=== PATIENT | female | born 1955 | race Caucasian/White ===

== ENCOUNTER 2017-01-24 08:40 | Inpatient (IN) | payer BC ==
[2017-01-24] MEDS ORDERED: NORMAL SALINE 1000 ML 1,000 ML IV ONE ×2 (09:06→10:08)
[2017-01-24] MEDS: NORMAL SALINE 1000 ML 1,000 ML IV PRN ×4 (09:08→21:23)
[2017-01-24 09:16] LABS: VENOUS BLOOD BASE EXCESS -8.8 mmol/L; VENOUS BLOOD HCO3 18.4 mmol/L (20-32); VENOUS BLOOD PCO2 44.5 mmHg (35-63); VENOUS BLOOD PH 7.23 (7.30-7.42)
[2017-01-24 09:18] LABS: HEMATOCRIT 32.9 % (36.0-47.0); HEMOGLOBIN 10.9 g/dL (12.0-15.5); HGB HCT DIFFERENCE -0.2; MEAN CORPUSCULAR HEMOGLOBIN 30.9 pg (27.0-33.4); MEAN CORPUSCULAR HGB CONC 33.1 g/dL (32.0-36.0); MEAN CORPUSCULAR VOLUME 94 fl (80-97); RED BLOOD COUNT 3.52 10^6/uL (3.72-5.28); RED CELL DISTRIBUTION WIDTH 13.8 % (11.5-14.0)
[2017-01-24] MEDS ORDERED: CEFTRIAXONE 1 GM/D5W RTU 50 ML IV ONE (09:19)
[2017-01-24] MEDS ORDERED: VANCOMYCIN HCL INJ 1000 MG VIAL IV ONE (09:19)
[2017-01-24 09:27] LABS: PROTHROMBIN TIME 13.1 SEC (11.4-15.4)
[2017-01-24 09:28] LABS: PARTIAL THROMBOPLASTIN TIME 31.1 SEC (23.5-35.8)
[2017-01-24 09:36] LABS: ALANINE AMINOTRANSFERASE 32 U/L (9-52); ALBUMIN 2.9 g/dL (3.5-5.0); ALKALINE PHOSPHATASE 141 U/L (38-126); ANION GAP 14 (5-19); ASPARTATE AMINO TRANSFERASE 23 U/L (14-36); BILIRUBIN,DIRECT 1.3 mg/dL (0.0-0.4); BILIRUBIN,TOTAL 1.3 mg/dL (0.2-1.3); BLOOD UREA NITROGEN 64 mg/dL (7-20); CALCIUM 8.7 mg/dL (8.4-10.2); CARBON DIOXIDE 16 mmol/L (22-30); CHLORIDE 106 mmol/L (98-107); CREATININE RESULT 4.09 mg/dL (0.52-1.25); GLUCOSE 118 mg/dL (75-110); POTASSIUM 3.5 mmol/L (3.6-5.0); SODIUM 135.9 mmol/L (137-145); TOTAL PROTEIN 5.7 g/dL (6.3-8.2)
[2017-01-24] MEDS ORDERED: NOREPINEPHRINE BITARTRATE INJ/PF 4 MG/4 ML SDV IV ONE (09:37)
[2017-01-24 09:52] LABS: BAND NEUTROPHILS % (MANUAL) 1 % (3-5); BASOPHILS % (MANUAL) 0 % (0-2); EOSINOPHILS % (MANUAL) 2 % (0-6); LYMPHOCYTES % (MANUAL) 0 % (13-45); TOTAL CELLS COUNTED 100
[2017-01-24 09:54] LABS: PLATELET CLUMPS PRESENT; RBC MORPHOLOGY COMMENT NORMO-CYTIC/CHROMIC; TOXIC VACUOLATION PRESENT
[2017-01-24] MEDS ORDERED: HYDROCORTISONE SOD SUCCINATE INJ/PF 100 MG/2 ML SDV IV ONE (10:01)
--- NOTE | 2017-01-24 10:02 | RADIOLOGY REPORT (SQ) ---
EXAM DESCRIPTION: CT HEAD WITHOUT COMPLETED DATE/TIME: 01/24/2017 9:47 am REASON FOR STUDY: ams COMPARISON: None. TECHNIQUE: Axial images acquired through the brain without intravenous contrast. Images reviewed wi th bone, brain and subdural windows. Images stored on PACS. All CT scanners at this facility use dose modulation, iterative reconstruction, and/or weight based d osing when appropriate to reduce radiation dose to as low as reasonably achievable (ALARA). [facility]: Dose Right [facility]: CareDose [facility]: Dose Right [facility]: Teradose 4D [facility]: [employer] RADIATION DOSE: Up-to-date CT equipment and radiation dose reduction techniques were employed. CTDIv ol: 64.6 mGy. DLP: 1163 mGy-cm. mGy. LIMITATIONS: None. FINDINGS: VENTRICLES: Normal size and contour. CEREBRUM: No masses. No hemorrhage. No midline shift. Normal haines/white matter differentiation. N o evidence for acute infarction. CEREBELLUM: No masses. No hemorrhage. No alteration of density. No evidence for acute infarction. EXTRAAXIAL SPACES: No fluid collections. No masses. ORBITS AND GLOBE: No intra- or extraconal masses. Normal contour of globe without masses. CALVARIUM: No fracture. PARANASAL SINUSES: No fluid or mucosal thickening. SOFT TISSUES: No mass or hematoma. OTHER: No other significant finding. IMPRESSION: NORMAL BRAIN CT WITHOUT CONTRAST. TECHNICAL DOCUMENTATION: JOB ID: [id number] Quality ID # [id number]: Final reports with documentation of one or more dose reduction techniques (e.g., Au tomated exposure control, adjustment of the mA and/or kV according to patient size, use of iterative reconstruction technique) 2010 [employer]- All Rights Reserved
[2017-01-24 10:05] LABS: THYROID STIMULATING HORMONE 2.31 uIU/mL (0.47-4.68)
--- NOTE | 2017-01-24 10:23 | RADIOLOGY REPORT (SQ) ---
EXAM DESCRIPTION: FOREARM LEFT COMPLETED DATE/TIME: 01/24/2017 10:12 am REASON FOR STUDY: OPEN WOUND, CHECK FOR GAS COMPARISON: None. NUMBER OF VIEWS: Two views. TECHNIQUE: Two radiographic images acquired of the left forearm, including elbow and wrist in at juve st one projection. LIMITATIONS: None. FINDINGS: MINERALIZATION: Normal. BONES: No acute fracture. No worrisome bone lesions. SOFT TISSUES: The wound is seen on the forearm. There is no gas in subcutaneous tissues. OTHER: No other significant finding. IMPRESSION: Wound with no osseous abnormality and with no evidence of gas in the subcutaneous tissue s. TECHNICAL DOCUMENTATION: JOB ID: [id number] [employer]- All Rights Reserved
[2017-01-24] MEDS ORDERED: NORMAL SALINE 1000 ML 1,000 ML IV PRN (11:06)
[2017-01-24] MEDS ORDERED: POTASSI CL 20 MEQ/50 ML RIDER 50 ML IV ONE (11:07)
[2017-01-24 11:17] LABS: AMORPHOUS SEDIMENT,URINE TRACE /HPF; APPEARANCE,URINE SLIGHTLY-CLOUDY; BILIRUBIN,URINE NEGATIVE (NEGATIVE); GLUCOSE, URINE NEGATIVE (NEGATIVE); KETONES,URINE NEGATIVE (NEGATIVE); LEUKOCYTE ESTERASE,URINE NEGATIVE (NEGATIVE); NITRITE,URINE NEGATIVE (NEGATIVE); PROTEIN,URINE NEGATIVE (NEGATIVE); UROBILINOGEN,URINE NEGATIVE mg/dL (<2.0)
[2017-01-24] MEDS ORDERED: PIPERACILLIN/TAZOBACTAM 3.375 GM VIAL IV ONE (11:20)
--- NOTE | 2017-01-24 11:27 | ER Document Report ---
ED General - General Chief Complaint: Altered Mental Status Stated Complaint: FALL\ALTERED MENTAL STATUS Time Seen by Provider: 01/24/17 08:59 TRAVEL OUTSIDE OF THE [place] IN LAST 30 DAYS: No - HPI Patient complains to provider of: Altered mental status Notes: Patient is coming in for altered mental status. According to the daughter at bedside patient since Monday is having altered mental status acting unusual states that the patient has been talking of her head no fevers no chills no nausea no vomiting patient had a recent I&D of a abscess on her left forearm since that time the forearm has become red and swollen. Otherwise patient has a very benign past medical history. Upon evaluation patient is severely hypotensive and pale looking patient is altered with waxing and waning alertness patient will be a no times forward and ANO 1. Patient GCS of 15 will have a GCS of around 11 of 10. Patient is maintaining her airway. Patient went altered does look to have a leftward gaze. - Related Data Allergies/Adverse Reactions: No Known Allergies Allergy (Unverified 01/24/17 08:52) Home Medications: Current Home Medications Amlodipine Besylate [Norvasc 10 mg Tablet] 10 mg PO DAILY 01/24/17 [History] Clonidine HCl [Catapres 0.3 mg Tablet] 0.3 mg PO DAILY 01/24/17 [History] Duloxetine HCl [Cymbalta] 60 mg PO QHS 01/24/17 [History] Gabapentin [Neurontin 300 mg Capsule] 300 mg PO Q8 01/24/17 [History] Lovastatin [Altoprev] 20 mg PO [id number] 01/24/17 [History] Meloxicam [Mobic 7.5 Mg Tablet] 7.5 mg PO Q12 01/24/17 [History] Oxycodone HCl [Oxycodone HCl 10 MG Tablet] 10 mg PO Q12HP PRN 01/24/17 [History] Oxycodone HCl/Acetaminophen [Percocet 10-325 Mg Tablet] 1 tab PO Q6HP PRN [History] Tizanidine HCl [Zanaflex 4 Mg Tablet] 4 mg PO Q8HP PRN 01/24/17 [History] Topiramate [Topamax] 50 mg PO DAILY 01/24/17 [History] Topiramate [Topamax] 100 mg PO QHS 01/24/17 [History] Trazodone HCl [Desyrel 50 mg Tablet] 50 mg PO HSP PRN 01/24/17 [History] Past Medical History - Social History Smoking Status: Never Smoker Chew tobacco use (# tins/day): No Frequency of alcohol use: Occasional Drug Abuse: None Family History: Reviewed & Not Pertinent Patient has suicidal ideation: No Patient has homicidal ideation: No - Past Medical History Cardiac Medical History: Reports: Hx Hypertension - on meds Denies: Hx Coronary Artery Disease, Hx Heart Attack Pulmonary Medical History: Denies: Hx Asthma, Hx Bronchitis, Hx COPD, Hx Pneumonia Neurological Medical History: Denies: Hx Cerebrovascular Accident, Hx Seizures Renal/ Medical History: Denies: Hx Peritoneal Dialysis Musculoskeltal Medical History: Denies Hx Arthritis - Immunizations Hx Diphtheria, Pertussis, Tetanus Vaccination: No Review of Systems - Review of Systems Notes: Difficult to obtain due to severe vital sign abnormalities -: Yes ROS unobtainable due to patient's medical condition Physical Exam - Vital signs Vitals: Resp Pulse Ox 13 95 01/24/17 08:57 01/24/17 08:57 Interpretation: Hypotensive, Hypoxic - General General appearance: Lethargic In distress: Severe - HEENT Head: Normocephalic, Atraumatic Eyes: Normal Conjunctiva: Normal Cornea: Normal Extraocular movements intact: Yes Pupils: PERRL Anterior chamber: Normal Fundascopic: Normal Neck: Normal - Respiratory Respiratory status: No respiratory distress Chest status: Nontender Breath sounds: Normal Chest palpation: Normal - Cardiovascular Rhythm: Regular Heart sounds: Normal auscultation Murmur: No - Abdominal Inspection: Normal Distension: No distension Bowel sounds: Normal Tenderness: Nontender Organomegaly: No organomegaly - Back Back: Normal, Nontender - Extremities General upper extremity: Nontender, Normal color, Normal ROM, Normal temperature. No: Normal inspection - Patient with 2 open wounds on the left arm from recent I&D ventilation tissue arm is erythematous and swollen the arm is tight with the edema. Cap refill is intact distally. Unknown if this is very tender knots patient does have altered mental status. General lower extremity: Normal inspection, Nontender, Normal color, Normal ROM , Normal temperature, Normal weight bearing. No: Preston's sign - Neurological Neuro grossly intact: Yes Cognition: Normal Orientation: AAOx4 - Waxing and waning mental status. Josh Coma Scale Eye Opening: Spontaneous [place] Coma Scale Verbal: Oriented [place] Coma Scale Motor: Obeys Commands Josh Coma Scale Total: 15 Speech: Normal Motor strength normal: LUE, RUE, LLE, RLE Sensory: Normal - Psychological Associated symptoms: Normal affect, Normal mood - Skin Skin Temperature: Cold Skin Moisture: Dry Skin Color: Dusky Course - Re-evaluation Re-evalutation: 01/24/17 15:02 Patient presents with significant hypotension and altered mental status. Upon initial evaluation patient had waxing and waning of her alertness. Patient did not complain of any pain. 2 IVs were established and 2 L of fluid were given to the patient. Concern for intracranial pathology is that the patient when she became altered with have a leftward gaze. Patient is hypotensive and borderline bradycardic concern for another intracranial pathology therefore his CT of the head was performed emergently. Patient then returned to room trauma room #2 upon [address] the patient tremor #2 patient actually had a decrease in her systolic blood pressure and her map despite 2 L of fluid therefore central line was placed as noted. Patient was given more fluids and initiation of Levophed. Patient examination does show signs of cellulitis however bedside ultrasound to evaluate the patient's abdominal aorta was made difficult and large gallbladder was seen on bedside ultrasound therefore after central line levo fed an extra 2 L of fluid were instilled in patient with improvement of her blood pressure decision was made to perform a CTA of the chest abdomen pelvis to look for other acute pathology. This returned only showing distended gallbladder lab work shows bandemia leukocytosis with acute renal failure at that time CT scans risk of worsening renal failure were negligible toward the patient's possible outcome of having a dissecting aneurysm. Patient is arm does have similar process concern for underlying infection therefore after discussing with PCP Dr. Pfeiffer I did contact surgery he did evaluate the patient. Broaden patient's coverage from initial antibiotics of Rocephin and vancomycin to Zosyn. Patient will be placed in ICU. - Vital Signs Vital signs: Temp Pulse Resp BP Pulse Ox 95.7 F L 115 H 18 73/31 L 99 01/24/17 12:45 01/24/17 12:45 01/24/17 12:45 01/24/17 12:45 01/24/17 12:45 - Laboratory Result Diagrams: 01/24/17 09:02 08/08/17 09:02 Laboratory results interpreted by me: 01/24/17 01/24/17 01/24/17 09:02 09:02 09:02 WBC 17.0 H RBC 3.52 L Hgb 10.9 L Hct 32.9 L Seg Neuts % (Manual) 92 H Band Neutrophils % 1 L Lymphocytes % (Manual) 0 L Abs Neuts (Manual) 15.8 H Abs Lymphs (Manual) 0.0 L VBG pH VBG HCO3 Sodium 135.9 L Potassium 3.5 L Carbon Dioxide 16 L BUN 64 H Creatinine 4.09 H Est GFR ( Amer) 13 L Est GFR (Non-Af Amer) 11 L Glucose 118 H Lactic Acid 2.8 H Direct Bilirubin 1.3 H Alkaline Phosphatase 141 H Total Protein 5.7 L Albumin 2.9 L Urine Blood 01/24/17 01/24/17 09:02 10:53 WBC RBC Hgb Hct Seg Neuts % (Manual) Band Neutrophils % Lymphocytes % (Manual) Abs Neuts (Manual) Abs Lymphs (Manual) VBG pH 7.23 L VBG HCO3 18.4 L Sodium Potassium Carbon Dioxide BUN Creatinine Est GFR ( Amer) Est GFR (Non-Af Amer) Glucose Lactic Acid Direct Bilirubin Alkaline Phosphatase Total Protein Albumin Urine Blood LARGE H Procedures - Central Line Right Internal jugular Consent obtained: Yes Central line lumen type: Triple Anesthetic type: 1% Lidocaine Ultrasound guided: Yes CM at insertion site: 20 Line secured with sutures: Yes Central line post-insertion: Blood return from lumens, Sutured, Sterile dressing applied, Other - Confirmed on CT scan Number of attempts: 1 Complications: Yes Critical Care Note - Critical Care Note Total time excluding time spent on procedures (mins): 80 Comments: Multiple evaluation for severe sepsis with endorgan failure cellulitic process of the patient's underlying etiology. Discharge - Discharge Clinical Impression: Sepsis, Cellulitis of left arm, Enlarged gallbladder, Metabolic acidosis Admitting Provider: [facility] Unit Admitted: ICU
--- NOTE | 2017-01-24 11:28 | RADIOLOGY REPORT (SQ) ---
EXAM DESCRIPTION: CTA CHEST COMPLETED DATE/TIME: 01/24/2017 10:49 am REASON FOR STUDY: abd pain sepsis refactory hypotension COMPARISON: CT abdomen pelvis same date TECHNIQUE: CT scan of the chest performed using helical scanning technique with dynamic intravenous contrast injection. Images reviewed with lung, soft tissue and bone windows. Reconstructed coronal and sagittal MPR images reviewed. Additional 3 dimensional post-processing performed to develop Maximal Intensity Projection images (MA P). All images stored on PACS. All CT scanners at this facility use dose modulation, iterative reconstruction, and/or weight based d osing when appropriate to reduce radiation dose to as low as reasonably achievable (ALARA). [facility]: Dose Right [facility]: CareDose [facility]: Dose Right [facility]: Teradose 4D [facility]: [employer] CONTRAST TYPE AND DOSE: contrast/concentration: Isovue 370.00 mg/ml; Total Contrast Delivered: 50.0 ml; Total Saline Delivered: 70.1 ml RENAL FUNCTION: Deferred at the time of scanning, due to the urgent need for imaging and severity of the patient's condition, scanning was performed without renal function studies RADIATION DOSE: Up-to-date CT equipment and radiation dose reduction techniques were employed. CTDIv ol: 2.8 - 11.2 mGy. DLP: 912 mGy-cm. . LIMITATIONS: None. FINDINGS: LUNGS AND PLEURA: No pulmonary edema. No pulmonary nodules. No dense consolidation worri some for pneumonia. Minimal dependent atelectasis in the posterior right and left lower lobes. No p leural effusion or pneumothorax. Airways are patent. AORTA AND GREAT VESSELS: Contrast bolus was timed for evaluation of the thoracic aorta. No thoracic aortic aneurysm or dissection. Maximum intensity re- projected images of the pulmonary arteries were generated. No gross emboli to the main, or right or left proximal main pulmonary arteries. HEART: No pericardial effusion. PULMONARY ARTERIES: No emboli visualized in the main pulmonary arteries or the segmental branches. HILAR AND MEDIASTINAL STRUCTURES: No identified masses or abnormal nodes. HARDWARE: A right jugular central venous line is present with the tip crossing midline, and in the le ft brachiocephalic vein. UPPER ABDOMEN: Distended gallbladder THYROID AND OTHER SOFT TISSUES: No masses. No adenopathy. BONES: No acute or significant finding. 3D MIPS: Confirm above findings. OTHER: Findings discussed with Dr. Mccallum, 1030 hours 01/24/2017. IMPRESSION: No thoracic aortic dissection. No gross saddle pulmonary embolus. Minimal bibasilar at electasis. TECHNICAL DOCUMENTATION: JOB ID: [id number] Quality ID # [id number]: Final reports with documentation of one or more dose reduction techniques (e.g., Au tomated exposure control, adjustment of the mA and/or kV according to patient size, use of iterative reconstruction technique) 2010 [employer]- All Rights Reserved
--- NOTE | 2017-01-24 12:00 | RADIOLOGY REPORT (SQ) ---
EXAM DESCRIPTION: CTA ABDOMEN/PELVIS W WO COMPLETED DATE/TIME: 01/24/2017 10:49 am REASON FOR STUDY: abd pain sepsis refactory hypotension COMPARISON: CT angio chest same date TECHNIQUE: CT scan of the abdominal aorta extending to the bilateral common femoral bifurcations per formed with intravenous contrast using helical scanning technique with dynamic intravenous contrast i njection. Images reviewed with lung, soft tissue, and bone windows. Reconstructed coronal and sagitta l MPR images reviewed. All images stored on PACS. Advanced 3D imaging as volume rendering, MIPS, SSD performed? yes All CT scanners at this facility use dose modulation, iterative reconstruction, and/or weight based d osing when appropriate to reduce radiation dose to as low as reasonably achievable (ALARA). [facility]: Dose Right [facility]: CareDose [facility]: Dose Right [facility]: Teradose 4D [facility]: [employer] CONTRAST TYPE AND DOSE: 50.2 mL of Isovue 370- low osmolar. RENAL FUNCTION: Due to the upper just nature of the study and severity of the patient's clinical con dition, emergency room attending physician deferred renal function studies prior to this exam with IV contrast LIMITATIONS: None. FINDINGS: AORTA AND VESSELS: No aneurysm. No dissection. Renal arteries, SMA, celiac without stenosi s. LUNG BASES: Minimal dependent atelectasis both lung bases. LIVER: Normal size. No masses or dilated ducts. SPLEEN: Normal size. No focal lesions. PANCREAS: No masses. No significant calcifications. No adjacent inflammation or peripancreatic fluid collections. Pancreatic duct not dilated. GALLBLADDER: Distended, 10 cm in length. No radiopaque gallstones by CT. No definite gallbladder wa ll thickening or pericholecystic fluid. ADRENAL GLANDS: No significant masses or asymmetry. RIGHT KIDNEY AND URETER: No mass, calculi or urinary tract obstruction. LEFT KIDNEY AND URETER: No mass, calculi or urinary tract obstruction. RETROPERITONEUM: No retroperitoneal adenopathy, hemorrhage or masses. BOWEL AND PERITONEAL CAVITY: No masses or inflammatory changes. No free fluid or peritoneal masses. Moderate stool in the colon. No free intraperitoneal air. Few sigmoid colon diverticuli without CT signs of acute diverticulitis. APPENDIX: Normal. ABDOMINAL WALL: No masses. No hernias. PELVIS: Normal size female pelvic organs. No free pelvic cul-de-sac fluid. No pelvic masses or naina nopathy. BONY STRUCTURES: No significant or acute findings. 3-D IMAGING: Confirms the above findings. OTHER: No other significant finding. IMPRESSION: No CT evidence of abdominal aortic aneurysm or retroperitoneal hemorrhage. Moderate stool in the colon. Distended gallbladder These results were discussed with Dr. Mccallum, 1030 hours, 02/24/2017. TECHNICAL DOCUMENTATION: JOB ID: [id number] Quality ID # [id number]: Final reports with documentation of one or more dose reduction techniques (e.g., Au tomated exposure control, adjustment of the mA and/or kV according to patient size, use of iterative reconstruction technique) 2010 [employer]- All Rights Reserved
--- NOTE | 2017-01-24 12:10 | EKG REPORT ---
SEVERITY:- BORDERLINE ECG - SINUS RHYTHM BORDERLINE T ABNORMALITIES, ANT-LAT LEADS : Confirmed by: Dustin Garnett 24-Jan-2017 12:10:12
[2017-01-24] MEDS ORDERED: VANCOMYCIN HCL 0 MG in DEXTROSE 5%-WATER 250 ML IV NR (12:15)
[2017-01-24] MEDS ORDERED: PIPERACILLIN SODIUM/TAZOBACTAM 3.375 GM in NORMAL SALINE 100 ML IV SCH (12:15)
[2017-01-24] MEDS ORDERED: DEXTROSE 5%-WATER 250 ML with NOREPINEPHRINE BITARTRATE 4 MG IV PRN ×2 (12:53)
[2017-01-24 13:38] LABS: PARTIAL THROMBOPLASTIN TIME 33.6 SEC (23.5-35.8)
[2017-01-24 13:51] LABS: MAGNESIUM 1.6 mg/dL (1.6-2.3); PHOSPHORUS 3.9 mg/dL (2.5-4.5)
[2017-01-24 13:53] LABS: AMYLASE < 30 U/L (30-110); LIPASE < 10.0 U/L (23-300)
[2017-01-24 14:54] LABS: TROPONIN I < 0.012 ng/mL
[2017-01-24 15:08] LABS: THYROID STIMULATING HORMONE 0.7 uIU/mL (0.47-4.68)
[2017-01-24] MEDS: HEPARIN SOD (PORCINE) 5,000 UNIT/ML 1 ML SYRINGE SUBCUT SCH ×2 (16:37→21:22)
[2017-01-24] MEDS: PIPERACILLIN SODIUM/TAZOBACTAM 2.25 GM in NORMAL SALINE 50 ML IV SCH ×2 (16:39→21:23)
[2017-01-24] MEDS: LANSOPRAZOLE 30 MG TAB.RAP.DR PO SCH (16:39)
--- NOTE | 2017-01-24 17:15 | RADIOLOGY REPORT (SQ) ---
EXAM DESCRIPTION: CHEST SINGLE VIEW COMPLETED DATE/TIME: 01/24/2017 4:50 pm REASON FOR STUDY: check central line placement COMPARISON: CT angio chest 01/24/2017 EXAM PARAMETERS: NUMBER OF VIEWS: One view. TECHNIQUE: Single frontal radiographic view of the chest acquired. RADIATION DOSE: NA LIMITATIONS: None. FINDINGS: A right jugular central venous catheter is present with the tip crossing midline, in the l eft brachiocephalic vein. LUNGS AND PLEURA: No opacities, masses or pneumothorax. No pleural effusion. MEDIASTINUM AND HILAR STRUCTURES: No masses. Contour normal. HEART AND VASCULAR STRUCTURES: Mild cardiomegaly BONES: No acute findings. HARDWARE: As above OTHER: No other significant finding. IMPRESSION: No acute infiltrates. Right jugular central line tip in the left brachiocephalic vein TECHNICAL DOCUMENTATION: JOB ID: [id number]
--- NOTE | 2017-01-24 17:52 | OPERATIVE REPORT E ---
Operative Report NAME: MANNIE DE OLIVEIRA : 1955 AGE: 61Y DATE OF SURGERY: 01/24/2017 ROOM: 607 PREOPERATIVE DIAGNOSIS: Malpositioned central line. POSTOPERATIVE DIAGNOSIS: Malpositioned central line. OPERATION: Repositioning of central line internal jugular vein on the right side. SURGEON: EMILY SANCHEZ M.D. ANESTHESIA: INDICATIONS: Patient had a central line placed in the ER and a chest x-ray was taken in the ICU which showed the catheter going towards the distal subclavian vein. PROCEDURE: The dressing was removed and the site prepped and draped in the usual sterile fashion. The nurse was not able to aspirate any blood from the catheter. Because of this, the catheter is being pulled back. After removal of the dressing and prepping the area, the sutures on the catheter were then removed. Catheter was subsequently pulled back about 5 cm. It was then grasped in a sterile fashion using another Biopatch. A chest x-ray will be obtained for positioning. DICTATING PHYSICIAN: EMILY SANCHEZ M.D. [id number] PHY#: [id number] ID: [id number] JOB#: [id number] ACCT: [id number] cc:EMILY SANCHEZ M.D. >
--- NOTE | 2017-01-24 17:54 | RADIOLOGY REPORT (SQ) ---
EXAM DESCRIPTION: CHEST SINGLE VIEW COMPLETED DATE/TIME: 01/24/2017 5:46 pm REASON FOR STUDY: central line placement COMPARISON: Earlier the same day. EXAM PARAMETERS: NUMBER OF VIEWS: One view. TECHNIQUE: Single frontal radiographic view of the chest acquired. RADIATION DOSE: NA LIMITATIONS: None. FINDINGS: LUNGS AND PLEURA: No pneumothorax or consolidation. Central line has been repositioned. Catheter tip now overlies the midline. It lies just left of the upper SVC. MEDIASTINUM AND HILAR STRUCTURES: No masses. Contour normal. HEART AND VASCULAR STRUCTURES: Heart normal in size. Normal vasculature. BONES: No acute findings. HARDWARE: None in the chest. OTHER: No other significant finding. IMPRESSION: Central line has been repositioned as described. TECHNICAL DOCUMENTATION: JOB ID: [id number]
[2017-01-24 19:44] LABS: TROPONIN I < 0.012 ng/mL
[2017-01-24] MEDS ORDERED: TRAZODONE HCL 50 MG TABLET PO PRN (20:03)
[2017-01-24] MEDS ORDERED: (PENDING PHARMACY ID) (Oxycodone Hcl/Acetaminophen [Percocet 10-325 Mg Tablet] 1 TAB) PO PRN (20:03)
[2017-01-24] MEDS ORDERED: TIZANIDINE HCL 4 MG TABLET PO PRN (20:03)
--- NOTE | 2017-01-24 20:44 | PDOC H&P ---
History of Present Illness Admission Date/PCP: 01/24/17 12:09 DASIA KESSLER MD History of Present Illness: Patient was brought to the emergency room for evaluation of altered mental status, the emergency room when she arrived she was in septic shock, the blood pressure was extremely low there was associated leukocytosis and erythema of the left upper extremity. Patient fell last week sustaining injury to the left upper arm this was treated outpatient with antibiotic and topical creams she subsequently developed hematoma that was aspirated and subsequently she had incision and drainage and it seems that it is secondarily infected and that is the potential source of sepsis it seems. In the emergency room she was extensively evaluated with CT scans of the chest abdomen and pelvis. Patient was resuscitated in the emergency room with IV fluid empirically covered with antibiotic including vancomycin, Zosyn and Rocephin. I saw her in the emergency room she she does respond she was alert though she was confused earlier, there was associated acute kidney injury with lactic acidosis. Past Medical History Cardiac Medical History: Reports: Hypertension - on meds Psychiatric Medical History: Reports: Depression Social History Smoking Status: Former Smoker Frequency of Alcohol Use: Occasional Hx Prescription Drug Abuse: Yes Family History Family History: Reviewed & Not Pertinent Parental Family History Reviewed: Yes Children Family History Reviewed: Yes Sibling(s) Family History Reviewed.: Yes Medication/Allergy Home Medications: Amlodipine Besylate [Norvasc 10 mg Tablet] 10 mg PO DAILY 01/24/17 Clonidine HCl [Catapres 0.3 mg Tablet] 0.3 mg PO DAILY 01/24/17 Duloxetine HCl [Cymbalta] 60 mg PO QHS 01/24/17 Gabapentin [Neurontin 300 mg Capsule] 300 mg PO Q8 01/24/17 Lovastatin [Altoprev] 20 mg PO [id number] 01/24/17 Meloxicam [Mobic 7.5 Mg Tablet] 7.5 mg PO Q12 01/24/17 Oxycodone HCl [Oxycodone HCl 10 MG Tablet] 10 mg PO Q12HP PRN 01/24/17 Oxycodone HCl/Acetaminophen [Percocet 10-325 Mg Tablet] 1 tab PO Q6HP PRN Tizanidine HCl [Zanaflex 4 Mg Tablet] 4 mg PO Q8HP PRN 01/24/17 Topiramate [Topamax] 50 mg PO DAILY 01/24/17 Topiramate [Topamax] 100 mg PO QHS 01/24/17 Trazodone HCl [Desyrel 50 mg Tablet] 50 mg PO HSP PRN 01/24/17 Allergies/Adverse Reactions: No Known Allergies Allergy (Unverified 01/24/17 08:52) Review of Systems ROS unobtainable: Due to mental status Physical Exam Vital Signs: Temp Pulse Resp BP Pulse Ox 99.0 F 82 25 H 108/54 L 97 01/24/17 19:35 01/24/17 20:00 01/24/17 18:34 01/24/17 18:34 01/24/17 18:34 Intake & Output 01/23/17 01/24/17 01/25/17 06:59 06:59 06:59 Intake Total 1066 Output Total 2200 Balance -1134 Weight 70.2 kg General appearance: PRESENT: severe distress Eye exam: PRESENT: PERRLA Respiratory exam: PRESENT: clear to auscultation alexy Cardiovascular exam: PRESENT: +S1, +S2 GI/Abdominal exam: PRESENT: soft Extremities exam: PRESENT: other - Erythema, swelling of the left upper extremity consistent with cellulitis Results Laboratory Results: 01/24/17 01/24/17 01/24/17 12:59 12:59 12:59 Lactic Acid Phosphorus 3.9 Magnesium 1.6 Ammonia < 8.7 L Amylase < 30 L Lipase < 10.0 L TSH 0.70 Free T4 1.75 01/24/17 17:00 Lactic Acid 1.2 Phosphorus Magnesium Ammonia Amylase Lipase TSH Free T4 01/24/17 01/24/17 01/24/17 12:59 12:59 18:55 Creatine Kinase 926 H CK-MB (CK-2) 21.90 H 21.60 H Troponin I < 0.012 < 0.012 01/24/17 18:55 Creatine Kinase 785 H CK-MB (CK-2) Troponin I Impressions: Chest X-Ray 01/24/17 00:00 IMPRESSION: Central line has been repositioned as described. Forearm X-Ray 01/24/17 00:00 IMPRESSION: Wound with no osseous abnormality and with no evidence of gas in the subcutaneous tissues. Head CT 01/24/17 09:05 IMPRESSION: NORMAL BRAIN CT WITHOUT CONTRAST. Abdomen/Pelvis CTA 01/24/17 09:57 IMPRESSION: No CT evidence of abdominal aortic aneurysm or retroperitoneal hemorrhage. Moderate stool in the colon. Distended gallbladder These results were discussed with Dr. Mccallum, 1030 hours, 02/24/2017. Chest/Abdomen CTA 01/24/17 09:57 IMPRESSION: No thoracic aortic dissection. No gross saddle pulmonary embolus. Minimal bibasilar atelectasis. Assessment & Plan - Diagnosis (1) Septic shock Is this a current diagnosis for this admission?: YesPlan: Patient admitted in septic shock, she will be managed in intensive care unit, she will continue Levophed infusion, IV fluid with isotonic normal saline, antibiotic to cover MRSA and gram-negative organisms, vancomycin and Zosyn (2) Cellulitis of left upper extremity Is this a current diagnosis for this admission?: Yes (3) Acute kidney injury Is this a current diagnosis for this admission?: Yes (4) Hypotension Qualifiers: Hypotension type: unspecified hypotension type Qualified Code(s): I95.9 - Hypotension, unspecified Is this a current diagnosis for this admission?: Yes - Time Time Spent: Greater than 70 Minutes
[2017-01-24] MEDS ORDERED: (PENDING PHARMACY ID) (Lovastatin [Altoprev] 20 MG) PO SCH (21:00)
[2017-01-24 21:08] LABS: HEMATOCRIT 30.9 % (36.0-47.0); HEMOGLOBIN 10.3 g/dL (12.0-15.5); MEAN CORPUSCULAR HEMOGLOBIN 30.7 pg (27.0-33.4); MEAN CORPUSCULAR HGB CONC 33.3 g/dL (32.0-36.0); MEAN CORPUSCULAR VOLUME 92 fl (80-97); RED BLOOD COUNT 3.36 10^6/uL (3.72-5.28); RED CELL DISTRIBUTION WIDTH 13.9 % (11.5-14.0); WHITE BLOOD COUNT 18.3 10^3/uL (4.0-10.5)
[2017-01-24] MEDS: GABAPENTIN 300 MG CAPSULE PO SCH (21:19)
[2017-01-24] MEDS: DULOXETINE HCL 30 MG CAPSULE.DR PO SCH (21:19)
[2017-01-24] MEDS: MELOXICAM 7.5 MG TABLET PO SCH (21:20)
[2017-01-24] MEDS: OXYCODONE-ACETAMINOPHEN 5-325 MG TABLET PO PRN (21:20)
[2017-01-24] MEDS: TOPIRAMATE 100 MG TABLET PO SCH (21:21)
[2017-01-24] MEDS: OXYCODONE HCL IR 5 MG TABLET PO PRN (21:21)
[2017-01-24 21:26] LABS: BAND NEUTROPHILS % (MANUAL) 6 % (3-5); BASOPHILS % (MANUAL) 0 % (0-2); EOSINOPHILS % (MANUAL) 0 % (0-6); LYMPHOCYTES % (MANUAL) 1 % (13-45); TOTAL CELLS COUNTED 100
[2017-01-24 21:27] LABS: ALANINE AMINOTRANSFERASE 33 U/L (9-52); ALBUMIN 2.4 g/dL (3.5-5.0); ALKALINE PHOSPHATASE 144 U/L (38-126); ANION GAP 12 (5-19); ASPARTATE AMINO TRANSFERASE 30 U/L (14-36); BILIRUBIN,DIRECT 1.2 mg/dL (0.0-0.4); BILIRUBIN,TOTAL 1.2 mg/dL (0.2-1.3); CALCIUM 7.4 mg/dL (8.4-10.2); CARBON DIOXIDE 15 mmol/L (22-30); CHLORIDE 115 mmol/L (98-107); CREATININE RESULT 2.33 mg/dL (0.52-1.25); GLUCOSE 159 mg/dL (75-110); POTASSIUM 3.3 mmol/L (3.6-5.0); SODIUM 141.9 mmol/L (137-145); TOTAL PROTEIN 4.6 g/dL (6.3-8.2)
[2017-01-24 21:31] LABS: BURR CELLS 1+; OVALOCYTES SLIGHT; POIKILOCYTOSIS 1+; POLYCHROMASIA SLIGHT; SCHISTOCYTES SLIGHT; TOXIC VACUOLATION PRESENT
[2017-01-24 21:37] LABS: BLOOD UREA NITROGEN 39 mg/dL (7-20)
[2017-01-24] MEDS ORDERED: (PENDING PHARMACY ID) (Topiramate [Topamax] 100 MG) PO SCH (22:00)
[2017-01-24] MEDS ORDERED: POTASSIUM CHLORIDE 10 MEQ TABLET.SA PO ONE (22:00)
[2017-01-24] MEDS ORDERED: ATORVASTATIN CALCIUM 10 MG TABLET PO SCH (22:00)
[2017-01-25 02:01] LABS: TROPONIN I < 0.012 ng/mL
--- NOTE | 2017-01-25 02:26 | RADIOLOGY REPORT (SQ) ---
EXAM DESCRIPTION: CHEST SINGLE VIEW COMPLETED DATE/TIME: 01/25/2017 1:35 am REASON FOR STUDY: central line placement COMPARISON: 01/24/2017. 01/12/2009. EXAM PARAMETERS: NUMBER OF VIEWS: One view. TECHNIQUE: Single frontal radiographic view of the chest acquired. RADIATION DOSE: NA LIMITATIONS: None. FINDINGS: LUNGS AND PLEURA: Mild chronic interstitial markings. MEDIASTINUM AND HILAR STRUCTURES: No masses. Contour normal. HEART AND VASCULAR STRUCTURES: Heart normal in size. Normal vasculature. BONES: No acute findings. HARDWARE: Adequate appearing right internal jugular central line. OTHER: No other significant finding. IMPRESSION: Mild chronic interstitial lung disease pattern. Right IJ line. TECHNICAL DOCUMENTATION: JOB ID: [id number]
[2017-01-25] MEDS: GABAPENTIN 300 MG CAPSULE PO SCH ×3 (05:02→21:53)
[2017-01-25] MEDS: PIPERACILLIN SODIUM/TAZOBACTAM 2.25 GM in NORMAL SALINE 50 ML IV SCH ×2 (05:02→13:33)
[2017-01-25] MEDS: LANSOPRAZOLE 30 MG TAB.RAP.DR PO SCH ×2 (05:02→19:50)
[2017-01-25] MEDS: HEPARIN SOD (PORCINE) 5,000 UNIT/ML 1 ML SYRINGE SUBCUT SCH ×2 (05:03→13:40)
[2017-01-25 05:07] LABS: HEMATOCRIT 29.5 % (36.0-47.0); HEMOGLOBIN 9.9 g/dL (12.0-15.5); HGB HCT DIFFERENCE 0.2; MEAN CORPUSCULAR HEMOGLOBIN 30.9 pg (27.0-33.4); MEAN CORPUSCULAR HGB CONC 33.7 g/dL (32.0-36.0); MEAN CORPUSCULAR VOLUME 92 fl (80-97); RED BLOOD COUNT 3.22 10^6/uL (3.72-5.28); WHITE BLOOD COUNT 15.6 10^3/uL (4.0-10.5)
[2017-01-25 05:19] LABS: BAND NEUTROPHILS % (MANUAL) 3 % (3-5); BASOPHILS % (MANUAL) 0 % (0-2); EOSINOPHILS % (MANUAL) 0 % (0-6); LYMPHOCYTES % (MANUAL) 7 % (13-45); TOTAL CELLS COUNTED 100
[2017-01-25 05:24] LABS: ALANINE AMINOTRANSFERASE 32 U/L (9-52); ALBUMIN 2.2 g/dL (3.5-5.0); ALKALINE PHOSPHATASE 162 U/L (38-126); ANION GAP 10 (5-19); ASPARTATE AMINO TRANSFERASE 27 U/L (14-36); BILIRUBIN,DIRECT 0.8 mg/dL (0.0-0.4); BILIRUBIN,TOTAL 0.8 mg/dL (0.2-1.3); BLOOD UREA NITROGEN 33 mg/dL (7-20); CALCIUM 7.6 mg/dL (8.4-10.2); CARBON DIOXIDE 16 mmol/L (22-30); CHLORIDE 120 mmol/L (98-107); CREATININE RESULT 1.91 mg/dL (0.52-1.25); GLUCOSE 89 mg/dL (75-110); POTASSIUM 3.5 mmol/L (3.6-5.0); SODIUM 145.7 mmol/L (137-145); TOTAL PROTEIN 4.4 g/dL (6.3-8.2)
[2017-01-25 05:25] LABS: TOXIC GRANULATION SLIGHT; TOXIC VACUOLATION PRESENT
[2017-01-25 05:26] LABS: BURR CELLS 2+; OVALOCYTES SLIGHT; POIKILOCYTOSIS 2+
[2017-01-25] MEDS: NORMAL SALINE 1000 ML 1,000 ML IV PRN ×2 (07:25→22:49)
[2017-01-25] MEDS ORDERED: (PENDING PHARMACY ID) (Lovastatin [Altoprev] 20 MG) PO SCH (08:00)
[2017-01-25] MEDS: AMLODIPINE BESYLATE 10 MG TABLET PO SCH (09:47)
[2017-01-25] MEDS: TOPIRAMATE 25 MG TABLET PO SCH (09:57)
[2017-01-25] MEDS: MELOXICAM 7.5 MG TABLET PO SCH ×2 (09:58→21:51)
[2017-01-25] MEDS ORDERED: ALBUMIN HUMAN 50 ML IV ONE (10:45)
--- NOTE | 2017-01-25 11:02 | PROGRESS NOTE E ---
Progress Note NAME: MANNIE DE OLIVEIRA : 1955 AGE: 61Y DATE: 01/25/2017 ROOM: 607 SUBJECTIVE: The patient is still on a small dose of Levophed, however, she is alert and oriented. OBJECTIVE: VITAL SIGNS: On examination, she has a temperature of 99.5 with a heart rate of 112. EXTREMITIES: Her left arm is still swollen and red. The previous I and D site is still draining seropurulent material, especially with squeezing on the 4 quadrants. PLAN: Because of this, I think she needs a more formal incision and drainage, which I plan to do later today since she had breakfast at 8:00 this morning. I can do this under sedation with local anesthesia because of her blood pressure being unstable at this time. In the meantime, her electrolytes are still abnormal with a sodium of 145 and chloride of 120 with a potassium of 3.5. Her potassium in the low limit and I am hesitant to give extra potassium because her kidney function is still abnormal, though improved from yesterday, now with a creatinine of 1.9 from 2.3 yesterday and BUN of 33 this morning from 39 yesterday. Her white count is also still elevated, but improved from 8.3 yesterday to this morning of 15.6. The plan is to continue IV antibiotics and give a little salt poor albumin for her needing fluid volume with the tachycardia and unfortunately cannot give more normal saline because of elevated sodium and chloride. I will do the incision and drainage under local anesthesia with sedation and hopefully we can get rid of most of or all of the abscess site. DICTATING PHYSICIAN: EMILY SANCHEZ M.D. [id number] PHY#: [id number] ID: [id number] JOB#: [id number] ACCT: [id number] cc: >
--- NOTE | 2017-01-25 13:09 | RADIOLOGY REPORT (SQ) ---
EXAM DESCRIPTION: MRI LT UPPER EXTREMITY WITHOUT COMPLETED DATE/TIME: 01/25/2017 12:11 pm REASON FOR STUDY: questionable osteomyelitis COMPARISON: 01/24/2017, left forearm films TECHNIQUE: Axial, sagittal, and coronal T1 and STIR images of the elbow and proximal forearm were ob tained. LIMITATIONS: None. FINDINGS: A 12 x 15 mm ulceration or skin laceration is present along the proximal forearm radial so ft tissues. There is diffuse subcutaneous edema edema and skin thickening along the distal upper arm, elbow soft tissues, and proximal forearm soft tissues. Small amount of fluid in the olecranon bursa. No pathologic elbow joint effusion or abnormal bone marrow signal in the distal humerus, or proximal radius or ulna. . There is edema along the superficial aspect of the extensor digitorum muscles and brachialis muscle, with edema extending into the tissue planes along the antecubital fossa. Findings are worrisome for myositis. No well circumscribed abscess. IMPRESSION: Extensive cellulitis in the distal left upper arm, extending into the mid 3rd left forea rm. No bone marrow signal abnormalities worrisome for osteomyelitis. No evidence of deep tissue abs cess. There is 7 edema along the superficial surface of the muscles described above in the antecubit al fossa region, compatible with myositis. TECHNICAL DOCUMENTATION: JOB ID: [id number] [employer]- All Rights Reserved
--- NOTE | 2017-01-25 14:55 | Physician Advisory Note ---
Physician Advisor ProgressNote .: Pursuant to the plan for [facility], I have reviewed the medical record for this patient. Physician Advisor Statement: Attending, please specify in documentation: 1. likely cause of septic shock (coders aren't allowed to assume it is the abscess/cellulitis) 2. likely cause of the NOY (sepsis? intravascular volume depletion? ....) 3. "Acute hypernatremia, likely due to " (intravascular volume depletion? ) 4. "acute metabolic acidosis, likely due to septic shock" Thanks! CK
[2017-01-25] MEDS ORDERED: LIDOCAINE 0.5% INJ-PF (5 MG/ML) 50 ML SDV ONE (15:46)
[2017-01-25] MEDS ORDERED: MIDAZOLAM 2 MG/2 ML INJ ONE (15:49)
[2017-01-25] MEDS ORDERED: FENTANYL CITRATE INJ/PF 100 MCG/2 ML AMPUL ONE ×2 (15:49→17:30)
[2017-01-25] MEDS ORDERED: ONDANSETRON HCL INJ/PF 4 MG/2 ML SDV ONE (15:49)
[2017-01-25] MEDS ORDERED: PROPOFOL INJ 200 MG/20 ML VIAL IV ONE ×2 (15:50→17:34)
--- NOTE | 2017-01-25 16:26 | PDOC PROGRESS REPORT ---
Subjective Progress Note for:: 01/25/17 Subjective:: Patient was admitted yesterday when she presented in septic shock, MRI of the left upper extremity was done without contrast, it showed extensive cellulitis in the distal left upper arm extending into the mid left forearm no evidence of osteomyelitis, no evidence of deep tissue abscess. The plan is for patient to have extensive incision and drainage done today by the surgeon. The kidney function is improved with hydration, the blood pressure is stabilized, she is no longer requiring intravenous pressor, she will be downgraded to telemetry floor from ICU Physical Exam Vital Signs: Temp Pulse Resp BP Pulse Ox 100.4 F 108 H 21 H 116/61 100 01/25/17 15:16 01/25/17 15:16 01/25/17 15:16 01/25/17 15:16 01/25/17 15:16 Intake & Output 01/24/17 01/25/17 01/26/17 06:59 06:59 06:59 Intake Total 2451 382 Output Total 3025 500 Balance -574 -118 Weight 72.2 kg General appearance: PRESENT: no acute distress Eye exam: PRESENT: PERRLA Respiratory exam: PRESENT: clear to auscultation alexy Cardiovascular exam: PRESENT: +S1, +S2 GI/Abdominal exam: PRESENT: soft Extremities exam: PRESENT: other - there is swelling, redness of the left upper extremity Neurological exam: PRESENT: alert, CN II-XII grossly intact Results Laboratory Results: 01/25/17 04:50 01/25/17 04:50 01/24/17 01/24/17 01/24/17 17:00 20:53 20:53 WBC 18.3 H RBC 3.36 L Hgb 10.3 L Hct 30.9 L MCV 92 MCH 30.7 MCHC 33.3 RDW 13.9 Plt Count 195 Seg Neutrophils % Not Reportable Lymphocytes % Not Reportable Monocytes % Not Reportable Eosinophils % Not Reportable Basophils % Not Reportable Absolute Neutrophils Not Reportable Absolute Lymphocytes Not Reportable Absolute Monocytes Not Reportable Absolute Eosinophils Not Reportable Absolute Basophils Not Reportable Sodium 141.9 Potassium 3.3 L Chloride 115 H Carbon Dioxide 15 L Anion Gap 12 BUN 39 H D Creatinine 2.33 H Est GFR ( Amer) 26 L Est GFR (Non-Af Amer) 21 L Glucose 159 H Lactic Acid 1.2 Calcium 7.4 L Total Bilirubin 1.2 AST 30 ALT 33 Alkaline Phosphatase 144 H Total Protein 4.6 L Albumin 2.4 L 01/25/17 01/25/17 01/25/17 04:50 04:50 10:42 WBC 15.6 H RBC 3.22 L Hgb 9.9 L Hct 29.5 L MCV 92 MCH 30.9 MCHC 33.7 RDW 14.0 Plt Count 205 Seg Neutrophils % Not Reportable Lymphocytes % Not Reportable Monocytes % Not Reportable Eosinophils % Not Reportable Basophils % Not Reportable Absolute Neutrophils Not Reportable Absolute Lymphocytes Not Reportable Absolute Monocytes Not Reportable Absolute Eosinophils Not Reportable Absolute Basophils Not Reportable Sodium 145.7 H Potassium 3.5 L Chloride 120 H Carbon Dioxide 16 L Anion Gap 10 BUN 33 H Creatinine 1.91 H Est GFR ( Amer) 32 L Est GFR (Non-Af Amer) 27 L Glucose 89 Lactic Acid 1.8 Calcium 7.6 L Total Bilirubin 0.8 AST 27 ALT 32 Alkaline Phosphatase 162 H Total Protein 4.4 L Albumin 2.2 L 01/24/17 01/24/17 01/24/17 12:59 12:59 18:55 Creatine Kinase 926 H CK-MB (CK-2) 21.90 H 21.60 H Troponin I < 0.012 < 0.012 01/24/17 01/25/17 01/25/17 18:55 01:12 01:12 Creatine Kinase 785 H 476 H CK-MB (CK-2) 13.30 H Troponin I < 0.012 Impressions: Forearm X-Ray 01/24/17 00:00 IMPRESSION: Wound with no osseous abnormality and with no evidence of gas in the subcutaneous tissues. Head CT 01/24/17 09:05 IMPRESSION: NORMAL BRAIN CT WITHOUT CONTRAST. Abdomen/Pelvis CTA 01/24/17 09:57 IMPRESSION: No CT evidence of abdominal aortic aneurysm or retroperitoneal hemorrhage. Moderate stool in the colon. Distended gallbladder These results were discussed with Dr. Mccallum, 1030 hours, 02/24/2017. Chest/Abdomen CTA 01/24/17 09:57 IMPRESSION: No thoracic aortic dissection. No gross saddle pulmonary embolus. Minimal bibasilar atelectasis. Upper Extremity MRI 01/25/17 00:00 IMPRESSION: Extensive cellulitis in the distal left upper arm, extending into the mid 3rd left forearm. No bone marrow signal abnormalities worrisome for osteomyelitis. No evidence of deep tissue abscess. There is 7 edema along the superficial surface of the muscles described above in the antecubital fossa region, compatible with myositis. Chest X-Ray 01/25/17 01:12 IMPRESSION: Mild chronic interstitial lung disease pattern. Right IJ line. Assessment & Plan - Diagnosis (1) Septic shock Is this a current diagnosis for this admission?: Yes (2) Cellulitis of left upper extremity Is this a current diagnosis for this admission?: Yes (3) Acute kidney injury Is this a current diagnosis for this admission?: Yes (4) Hypotension Qualifiers: Hypotension type: unspecified hypotension type Qualified Code(s): I95.9 - Hypotension, unspecified Is this a current diagnosis for this admission?: Yes - Plan Summary Plan Summary: Continue present IV antibiotic including vancomycin,piperacillin/tazobam, hydration with fluid
[2017-01-25] MEDS ORDERED: (PENDING PHARMACY ID) (Clonidine Hcl [Catapres 0.3 Mg Tablet] 0.3 MG) PO SCH (16:47)
[2017-01-25] MEDS ORDERED: POTASSIUM CHLORIDE 20 MEQ/15 ML UDCUP PO SCH (18:00)
[2017-01-25] MEDS ORDERED: CLONIDINE HCL 0.1 MG TABLET PO SCH (18:00)
[2017-01-25] MEDS ORDERED: ACETAMINOPHEN 100 ML IV ONE (18:33)
[2017-01-25 18:43] LABS: HEMATOCRIT 29.7 % (36.0-47.0); HEMOGLOBIN 9.9 g/dL (12.0-15.5); MEAN CORPUSCULAR HEMOGLOBIN 30.4 pg (27.0-33.4); MEAN CORPUSCULAR HGB CONC 33.4 g/dL (32.0-36.0); MEAN CORPUSCULAR VOLUME 91 fl (80-97); RED BLOOD COUNT 3.25 10^6/uL (3.72-5.28); RED CELL DISTRIBUTION WIDTH 13.9 % (11.5-14.0); WHITE BLOOD COUNT 13.3 10^3/uL (4.0-10.5)
--- NOTE | 2017-01-25 18:47 | OPERATIVE REPORT E ---
Operative Report NAME: MANNIE DE OLIVEIRA : 1955 AGE: 61Y DATE OF SURGERY: ROOM: 607 PREOPERATIVE DIAGNOSIS: ABSCESS AND CELLULITIS OF THE LEFT FOREARM. POSTOPERATIVE DIAGNOSIS: ABSCESS AND CELLULITIS OF THE LEFT FOREARM. OPERATION: Incision and drainage of abscess/cellulitis, left forearm laterally about 15 cm long, a second incision and drainage on the medial side about 8 cm long down to the fascia. SURGEON: EMILY SANCHEZ M.D. ANESTHESIA: Local, MAC. INDICATION: This is a 61-year-old female who had a cellulitis and abscess of the left forearm admitted yesterday with confusion and hypotension as well as elevated lactic acid. Today, the arm is more swollen and red and in squeezing around the old I and D site, there comes out seropurulent material. The patient is also complaining of a lot of pain. PROCEDURE: After adequate IV sedation, the patient was placed in the supine position and the left arm was extended and then prepped and draped in the usual sterile fashion. Local anesthesia was infiltrated around the old incision I and D site and the wound was extended distally to about 2 cm. The fascia underneath appeared to be intact, however, the subcutaneous was markedly edematous and when squeezed, some seropurulent material comes out. Further dissection of the distal area towards the area of the wrist noted some more seropurulent material. Because of this, the incision has been extended distally to a distance of about 12 cm. Next, the incision was extended proximally to another 3 cm close to the elbow. There is evidence of seropurulent discharge on squeezing all along the incision site, however, the medial side of the forearm is also markedly erythematous and somewhat fluctuant. Because of this, another vertical incision is made and after local anesthesia, was infiltrated. Again, more seropurulent drainage was noted. This was extended down just below the fascia though no definite significant drainage from the fascia noted. The incision needed to be extended to a distance of about 8 cm. Both I and D sites were then pulse lavaged with about 3 L of saline. Hemostasis was controlled with cautery and suture ligature using 5-0 Prolene. The area was subsequently packed with 1/4-inch Iodoform gauze for both sites and covered with 4 x 4 and Lucie and a 4-inch Lobo bandage. The patient's left hand was noted to be warm and slightly edematous and somewhat red. We will keep the arm elevated postoperatively and continue IV antibiotics. There was some question of further I and D in the next few days if it develops further abscesses. The patient tolerated the procedure well. Needle, instrument and sponge count were all correct and estimated blood loss was about 15 mL. The patient was then brought to the recovery room in satisfactory condition. DICTATING PHYSICIAN: EMILY SANCHEZ M.D. [id number] PHY#: [id number] ID: [id number] JOB#: [id number] ACCT: [id number] cc:EMILY SANCHEZ M.D. >
[2017-01-25 18:56] LABS: PROTHROMBIN TIME 12.5 SEC (11.4-15.4)
[2017-01-25 18:57] LABS: PARTIAL THROMBOPLASTIN TIME 31.1 SEC (23.5-35.8)
[2017-01-25 19:01] LABS: CREATININE RESULT 1.14 mg/dL (0.52-1.25)
[2017-01-25] MEDS: FENTANYL CITRATE INJ/PF 100 MCG/2 ML AMPUL IV PRN ×6 (19:53→19:56)
[2017-01-25] MEDS: PROMETHAZINE HCL INJ 25 MG/1 ML VIAL IV PRN ×2 (19:53→19:56)
[2017-01-25] MEDS: DIPHENHYDRAMINE HCL 50 MG/ML VIAL IV PRN ×2 (19:53→19:56)
[2017-01-25] MEDS: OXYCODONE-ACETAMINOPHEN 5-325 MG TABLET PO PRN (19:56)
[2017-01-25] MEDS: OXYCODONE HCL IR 5 MG TABLET PO PRN (19:57)
[2017-01-25] MEDS: POTASSIUM CHLORIDE 20 MEQ/15 ML UDCUP PO SCH (21:49)
[2017-01-25] MEDS: TOPIRAMATE 100 MG TABLET PO SCH (21:51)
[2017-01-25] MEDS: DULOXETINE HCL 30 MG CAPSULE.DR PO SCH (21:51)
[2017-01-25] MEDS: CLONIDINE HCL 0.1 MG TABLET PO SCH (21:52)
[2017-01-25] MEDS ORDERED: HEPARIN SOD (PORCINE) 5,000 UNIT/ML 1 ML SYRINGE SUBCUT SCH (22:00)
[2017-01-25 23:23] LABS: ALANINE AMINOTRANSFERASE 29 U/L (9-52); ALBUMIN 2.3 g/dL (3.5-5.0); ALKALINE PHOSPHATASE 199 U/L (38-126); ANION GAP 11 (5-19); ASPARTATE AMINO TRANSFERASE 25 U/L (14-36); BILIRUBIN,DIRECT 0.9 mg/dL (0.0-0.4); BILIRUBIN,TOTAL 0.9 mg/dL (0.2-1.3); BLOOD UREA NITROGEN 23 mg/dL (7-20); CALCIUM 8.3 mg/dL (8.4-10.2); CARBON DIOXIDE 17 mmol/L (22-30); CHLORIDE 120 mmol/L (98-107); CREATININE RESULT 1.23 mg/dL (0.52-1.25); GLUCOSE 92 mg/dL (75-110); POTASSIUM 3.4 mmol/L (3.6-5.0); SODIUM 147.8 mmol/L (137-145); TOTAL PROTEIN 4.9 g/dL (6.3-8.2)
[2017-01-25 23:44] LABS: BASOPHILS % (MANUAL) 0 % (0-2); EOSINOPHILS % (MANUAL) 2 % (0-6); LYMPHOCYTES % (MANUAL) 9 % (13-45); TOTAL CELLS COUNTED 100
[2017-01-25 23:46] LABS: POLYCHROMASIA SLIGHT; TOXIC GRANULATION 1+
[2017-01-25 23:47] LABS: BURR CELLS 1+; OVALOCYTES SLIGHT; POIKILOCYTOSIS SLIGHT; ROULEAUX SLIGHT; SCHISTOCYTES SLIGHT
[2017-01-26] MEDS: ENOXAPARIN SODIUM INJ 40 MG/0.4 ML DISP.SYRIN SUBCUT SCH ×2 (00:16→23:18)
[2017-01-26] MEDS: PIPERACILLIN SODIUM/TAZOBACTAM 2.25 GM in NORMAL SALINE 50 ML IV SCH ×2 (02:10→05:20)
[2017-01-26] MEDS: OXYCODONE HCL IR 5 MG TABLET PO PRN ×2 (03:32→16:31)
[2017-01-26] MEDS: GABAPENTIN 300 MG CAPSULE PO SCH ×3 (05:14→21:27)
[2017-01-26] MEDS: LANSOPRAZOLE 30 MG TAB.RAP.DR PO SCH ×2 (05:14→16:31)
[2017-01-26 06:10] LABS: HEMOGLOBIN 9.9 g/dL (12.0-15.5); HGB HCT DIFFERENCE 0.7; MEAN CORPUSCULAR HEMOGLOBIN 31.3 pg (27.0-33.4); MEAN CORPUSCULAR HGB CONC 34.1 g/dL (32.0-36.0); MEAN CORPUSCULAR VOLUME 92 fl (80-97); RED BLOOD COUNT 3.16 10^6/uL (3.72-5.28); RED CELL DISTRIBUTION WIDTH 14.2 % (11.5-14.0); WHITE BLOOD COUNT 9.9 10^3/uL (4.0-10.5)
[2017-01-26 06:22] LABS: ALANINE AMINOTRANSFERASE 27 U/L (9-52); ALBUMIN 2.3 g/dL (3.5-5.0); ALKALINE PHOSPHATASE 189 U/L (38-126); ANION GAP 7 (5-19); ASPARTATE AMINO TRANSFERASE 18 U/L (14-36); BILIRUBIN,DIRECT 0.9 mg/dL (0.0-0.4); BILIRUBIN,TOTAL 0.9 mg/dL (0.2-1.3); BLOOD UREA NITROGEN 17 mg/dL (7-20); CALCIUM 8.3 mg/dL (8.4-10.2); CARBON DIOXIDE 19 mmol/L (22-30); CHLORIDE 121 mmol/L (98-107); CREATININE RESULT 0.98 mg/dL (0.52-1.25); GLUCOSE 109 mg/dL (75-110); POTASSIUM 3.7 mmol/L (3.6-5.0); SODIUM 146.5 mmol/L (137-145); TOTAL PROTEIN 4.8 g/dL (6.3-8.2)
[2017-01-26 07:16] LABS: BASOPHILS % (MANUAL) 0 % (0-2); EOSINOPHILS % (MANUAL) 1 % (0-6); HYPOCHROMASIA 1+; LYMPHOCYTES % (MANUAL) 19 % (13-45); POLYCHROMASIA SLIGHT; TOTAL CELLS COUNTED 100
--- NOTE | 2017-01-26 08:28 | PDOC PROGRESS REPORT ---
Subjective Progress Note for:: 01/26/17 Subjective:: feels okay. Physical Exam Vital Signs: Temp Pulse Resp BP Pulse Ox 98.1 F 90 18 107/59 L 96 01/26/17 03:22 01/26/17 07:00 01/26/17 03:22 01/26/17 03:22 01/26/17 03:22 Intake & Output 01/25/17 01/26/17 01/27/17 06:59 06:59 06:59 Intake Total 2456 5741 Output Total 3020 5235 Balance -574 519 Weight 72.2 kg 73.2 kg General appearance: PRESENT: no acute distress, cooperative Respiratory exam: PRESENT: clear to auscultation alexy Cardiovascular exam: PRESENT: RRR Extremities exam: PRESENT: other - Left arm wounds are very clean there is residual surrounding erythema but no fluctuance no purulent drainage. Mild left arm diffuse swelling Results Laboratory Results: 01/26/17 05:40 01/26/17 05:40 01/25/17 01/25/17 01/25/17 10:42 18:21 18:21 WBC 13.3 H RBC 3.25 L Hgb 9.9 L Hct 29.7 L MCV 91 MCH 30.4 MCHC 33.4 RDW 13.9 Plt Count 215 Seg Neutrophils % Not Reportable Lymphocytes % Not Reportable Monocytes % Not Reportable Eosinophils % Not Reportable Basophils % Not Reportable Absolute Neutrophils Not Reportable Absolute Lymphocytes Not Reportable Absolute Monocytes Not Reportable Absolute Eosinophils Not Reportable Absolute Basophils Not Reportable Sodium Potassium Chloride Carbon Dioxide Anion Gap BUN Creatinine 1.14 Est GFR ( Amer) 59 L Est GFR (Non-Af Amer) 49 L Glucose Lactic Acid 1.8 Calcium Total Bilirubin AST ALT Alkaline Phosphatase Total Protein Albumin 01/25/17 01/25/17 01/26/17 18:21 18:21 05:40 WBC Cancelled 9.9 RBC Cancelled 3.16 L Hgb Cancelled 9.9 L Hct Cancelled 29.0 L MCV Cancelled 92 MCH Cancelled 31.3 MCHC Cancelled 34.1 RDW Cancelled 14.2 H Plt Count Cancelled 212 Seg Neutrophils % Cancelled Not Reportable Lymphocytes % Cancelled Not Reportable Monocytes % Cancelled Not Reportable Eosinophils % Cancelled Not Reportable Basophils % Cancelled Not Reportable Absolute Neutrophils Cancelled Not Reportable Absolute Lymphocytes Cancelled Not Reportable Absolute Monocytes Cancelled Not Reportable Absolute Eosinophils Cancelled Not Reportable Absolute Basophils Cancelled Not Reportable Sodium 147.8 H Potassium 3.4 L Chloride 120 H Carbon Dioxide 17 L Anion Gap 11 BUN 23 H Creatinine 1.23 Est GFR ( Amer) 54 L Est GFR (Non-Af Amer) 45 L Glucose 92 Lactic Acid Calcium 8.3 L Total Bilirubin 0.9 AST 25 ALT 29 Alkaline Phosphatase 199 H Total Protein 4.9 L Albumin 2.3 L 01/26/17 05:40 WBC RBC Hgb Hct MCV MCH MCHC RDW Plt Count Seg Neutrophils % Lymphocytes % Monocytes % Eosinophils % Basophils % Absolute Neutrophils Absolute Lymphocytes Absolute Monocytes Absolute Eosinophils Absolute Basophils Sodium 146.5 H Potassium 3.7 Chloride 121 H Carbon Dioxide 19 L Anion Gap 7 BUN 17 Creatinine 0.98 Est GFR ( Amer) > 60 Est GFR (Non-Af Amer) 58 L Glucose 109 Lactic Acid Calcium 8.3 L Total Bilirubin 0.9 AST 18 ALT 27 Alkaline Phosphatase 189 H Total Protein 4.8 L Albumin 2.3 L 01/24/17 01/24/17 01/24/17 12:59 12:59 18:55 Creatine Kinase 926 H CK-MB (CK-2) 21.90 H 21.60 H Troponin I < 0.012 < 0.012 01/24/17 01/25/17 01/25/17 18:55 01:12 01:12 Creatine Kinase 785 H 476 H CK-MB (CK-2) 13.30 H Troponin I < 0.012 Impressions: Forearm X-Ray 01/24/17 00:00 IMPRESSION: Wound with no osseous abnormality and with no evidence of gas in the subcutaneous tissues. Head CT 01/24/17 09:05 IMPRESSION: NORMAL BRAIN CT WITHOUT CONTRAST. Abdomen/Pelvis CTA 01/24/17 09:57 IMPRESSION: No CT evidence of abdominal aortic aneurysm or retroperitoneal hemorrhage. Moderate stool in the colon. Distended gallbladder These results were discussed with Dr. Mccallum, 1030 hours, 02/24/2017. Chest/Abdomen CTA 01/24/17 09:57 IMPRESSION: No thoracic aortic dissection. No gross saddle pulmonary embolus. Minimal bibasilar atelectasis. Upper Extremity MRI 01/25/17 00:00 IMPRESSION: Extensive cellulitis in the distal left upper arm, extending into the mid 3rd left forearm. No bone marrow signal abnormalities worrisome for osteomyelitis. No evidence of deep tissue abscess. There is 7 edema along the superficial surface of the muscles described above in the antecubital fossa region, compatible with myositis. Chest X-Ray 01/25/17 01:12 IMPRESSION: Mild chronic interstitial lung disease pattern. Right IJ line. Assessment & Plan - Diagnosis (1) infected hematoma Is this a current diagnosis for this admission?: YesPlan: Status post debridement. Infection appears to be in control. Will do dressing changes. Continue IV antibiotics. Will get patient out of bed ambulating.
--- NOTE | 2017-01-26 09:43 | RADIOLOGY REPORT (SQ) ---
EXAM DESCRIPTION: CHEST SINGLE VIEW COMPLETED DATE/TIME: 01/26/2017 8:40 am REASON FOR STUDY: sepsis COMPARISON: CTA chest 01/24/2017 Chest films 01/24/2017, 01/25/2017 EXAM PARAMETERS: NUMBER OF VIEWS: One view. TECHNIQUE: Single frontal radiographic view of the chest acquired. RADIATION DOSE: NA LIMITATIONS: None. FINDINGS: LUNGS AND PLEURA: No opacities, masses or pneumothorax. No pleural effusion. MEDIASTINUM AND HILAR STRUCTURES: No masses. Contour normal. HEART AND VASCULAR STRUCTURES: Heart normal in size. Normal vasculature. BONES: No acute findings. HARDWARE: Right jugular central line tip superior vena cava. OTHER: No other significant finding. IMPRESSION: NO ACUTE RADIOGRAPHIC FINDING IN THE CHEST. TECHNICAL DOCUMENTATION: JOB ID: [id number]
[2017-01-26] MEDS ORDERED: VANCOMYCIN HCL 1,000 MG in DEXTROSE 5%-WATER 250 ML IV SCH (10:00)
[2017-01-26] MEDS: OXYCODONE-ACETAMINOPHEN 5-325 MG TABLET PO PRN (10:07)
[2017-01-26] MEDS: MELOXICAM 7.5 MG TABLET PO SCH ×2 (10:09→21:27)
[2017-01-26] MEDS: AMLODIPINE BESYLATE 10 MG TABLET PO SCH (10:09)
[2017-01-26] MEDS: TOPIRAMATE 25 MG TABLET PO SCH (10:12)
--- NOTE | 2017-01-26 12:30 | CONSULTATION REPORT E ---
Consultation Report NAME: MANNIE DE OLIVEIRA : 1955 AGE: 61Y DATE: 01/24/2017 531 A TO: EMILY SANCHEZ M.D. FROM: DASIA KESSLER M.D. Requesting Physician REASON FOR CONSULTATION: Patient with swollen left forearm and with hypotension. HISTORY OF PRESENT ILLNESS: This is a 61-year-old female who claimed she slipped on a carpet in front of her office and fell and injured her left arm, both knees and right shoulder. Five days ago she went to see her family physician who tried to aspirate it and then the patient came back the next day, and at this time an attempt at incision and drainage was done. Blood and clots were removed but no pus. This morning the patient was confused according to the daughter, and so the daughter brought her to the ED where she was noted to be hypotensive and needed pressors. I saw her in the ED and noted the left arm to be swollen and erythematous. This appears to be the likely source of infection with hypotension. Her lactic acid is elevated to almost 3. She was immediately also placed on IV antibiotics in the ER. PAST MEDICAL HISTORY: Cardiac history, reports hypertension. Psychiatric history, reports depression. SOCIAL HISTORY: Former smoker, occasional alcohol use. No history of prescription drug abuse. FAMILY HISTORY: Noncontributory. ALLERGIES: No known allergies. REVIEW OF SYSTEMS: Denies any visual or hearing problems. No chest pain or shortness of breath. No diarrhea, constipation or dysuria. Complaining of pain in the left arm and right knee and right shoulder. Had episode of confusion this morning prior to being brought to the emergency room. Rest of the systems were reviewed and negative. PHYSICAL EXAMINATION: GENERAL APPEARANCE: The patient is well-developed, well-nourished 61-year-old female, alert and oriented when seen. The patient apparently had some disorientation when seen initially in the emergency room. The patient appears to be severe hypotension and needed pressors. RESPIRATORY: Lungs are clear to auscultation. CARDIOVASCULAR: Regular sinus rhythm. ABDOMEN: Soft, nontender. EXTREMITIES: Left forearm is moderately swollen and erythematous with previous I and D site, draining some serous and light purulent material. She has abrasion just below the elbow and just above the I and D site. She is able to move her left hand and good sensation. Pulses in the left wrist are palpable. On the skin part of the forearm is somewhat erythematous with a few what appears to be a starting rash. There is induration of the skin around the I and D site. The forearm is relatively soft and no evidence of compartment syndrome. IMPRESSION: Cellulitis with possibly developing abscess of the left forearm causing systemic inflammatory response with hypotension and confusion. RECOMMENDATIONS: 1. Continue with hydration. 2. IV fluids. 3. Watch closely in the intensive care unit. 4. I will monitor the left arm for any abscess. She just had an x-ray of the left forearm which did not show any obvious collection or fracture. I do not believe that there is any abscess collection that can be drained at this time; however, will evaluate her again in the next 24 hours in the intensive care unit. DICTATING PHYSICIAN: EMILY SANCHEZ M.D. [id number] PHY#: [id number] ID: [id number] JOB#: [id number] ACCT: [id number] cc:EMILY SANCHEZ M.D. >
--- NOTE | 2017-01-26 12:49 | OPERATIVE REPORT E ---
Operative Report NAME: MANNIE DE OLIVEIRA : 1955 AGE: 61Y DATE OF SURGERY: ROOM: 531 PREOPERATIVE DIAGNOSIS: CELLULITIS WITH ABSCESS OF THE LEFT FOREARM. OPERATION: Incision and drainage of abscess/cellulitis of the left lateral forearm and another incision on the medial side about 8 cm long down below the fascia and pulse lavage. SURGEON: EMILY SANCHEZ M.D. ANESTHESIA: Local with sedation. INDICATION: This is a 61-year-old female who had a fall about a week ago and subsequently had attempted incision and drainage of the left forearm. This got an infection and patient was brought to the Emergency Room with confusion and hypothyroidism with elevated lactic acid. The original drain site has been draining serous fluid and when the area surrounding this is squeezed, there is some purulent material noted. The left forearm is markedly edematous and red and markedly tender. PROCEDURE: After adequate IV sedation, the patient was placed in the supine position with the left arm extended DICTATING PHYSICIAN: EMILY SANCHEZ M.D. [id number] PHY#: [id number] ID: [id number] JOB#: [id number] ACCT: [id number] cc:EMILY SANCHEZ M.D. >
[2017-01-26] MEDS: PIPERACILLIN SODIUM/TAZOBACTAM 3.375 GM in NORMAL SALINE 100 ML IV SCH ×3 (13:51→23:18)
--- NOTE | 2017-01-26 18:22 | PDOC PROGRESS REPORT ---
Subjective Progress Note for:: 01/26/17 Subjective:: She was seen by the bedside, status post surgical debridement of the wound of the left upper extremity Physical Exam Vital Signs: Temp Pulse Resp BP Pulse Ox 98.3 F 98 20 120/62 96 01/26/17 09:00 01/26/17 14:00 01/26/17 09:00 01/26/17 09:00 01/26/17 03:22 Intake & Output 01/25/17 01/26/17 01/27/17 06:59 06:59 06:59 Intake Total 2063 5789 1700 Output Total 7418 5254 1300 Balance -574 519 400 Weight 72.2 kg 73.2 kg General appearance: PRESENT: no acute distress Eye exam: PRESENT: PERRLA Respiratory exam: PRESENT: clear to auscultation alexy Cardiovascular exam: PRESENT: +S1, +S2 GI/Abdominal exam: PRESENT: soft Neurological exam: PRESENT: alert, CN II-XII grossly intact Results Laboratory Results: 01/26/17 05:40 01/26/17 05:40 01/25/17 01/25/17 01/25/17 18:21 18:21 18:21 WBC 13.3 H Cancelled RBC 3.25 L Cancelled Hgb 9.9 L Cancelled Hct 29.7 L Cancelled MCV 91 Cancelled MCH 30.4 Cancelled MCHC 33.4 Cancelled RDW 13.9 Cancelled Plt Count 215 Cancelled Seg Neutrophils % Not Reportable Cancelled Lymphocytes % Not Reportable Cancelled Monocytes % Not Reportable Cancelled Eosinophils % Not Reportable Cancelled Basophils % Not Reportable Cancelled Absolute Neutrophils Not Reportable Cancelled Absolute Lymphocytes Not Reportable Cancelled Absolute Monocytes Not Reportable Cancelled Absolute Eosinophils Not Reportable Cancelled Absolute Basophils Not Reportable Cancelled Sodium Potassium Chloride Carbon Dioxide Anion Gap BUN Creatinine 1.14 Est GFR ( Amer) 59 L Est GFR (Non-Af Amer) 49 L Glucose Calcium Total Bilirubin AST ALT Alkaline Phosphatase Total Protein Albumin 01/25/17 01/26/17 01/26/17 18:21 05:40 05:40 WBC 9.9 RBC 3.16 L Hgb 9.9 L Hct 29.0 L MCV 92 MCH 31.3 MCHC 34.1 RDW 14.2 H Plt Count 212 Seg Neutrophils % Not Reportable Lymphocytes % Not Reportable Monocytes % Not Reportable Eosinophils % Not Reportable Basophils % Not Reportable Absolute Neutrophils Not Reportable Absolute Lymphocytes Not Reportable Absolute Monocytes Not Reportable Absolute Eosinophils Not Reportable Absolute Basophils Not Reportable Sodium 147.8 H 146.5 H Potassium 3.4 L 3.7 Chloride 120 H 121 H Carbon Dioxide 17 L 19 L Anion Gap 11 7 BUN 23 H 17 Creatinine 1.23 0.98 Est GFR ( Amer) 54 L > 60 Est GFR (Non-Af Amer) 45 L 58 L Glucose 92 109 Calcium 8.3 L 8.3 L Total Bilirubin 0.9 0.9 AST 25 18 ALT 29 27 Alkaline Phosphatase 199 H 189 H Total Protein 4.9 L 4.8 L Albumin 2.3 L 2.3 L 01/24/17 01/24/17 01/24/17 12:59 12:59 18:55 Creatine Kinase 926 H CK-MB (CK-2) 21.90 H 21.60 H Troponin I < 0.012 < 0.012 01/24/17 01/25/17 01/25/17 18:55 01:12 01:12 Creatine Kinase 785 H 476 H CK-MB (CK-2) 13.30 H Troponin I < 0.012 Impressions: Forearm X-Ray 01/24/17 00:00 IMPRESSION: Wound with no osseous abnormality and with no evidence of gas in the subcutaneous tissues. Head CT 01/24/17 09:05 IMPRESSION: NORMAL BRAIN CT WITHOUT CONTRAST. Abdomen/Pelvis CTA 01/24/17 09:57 IMPRESSION: No CT evidence of abdominal aortic aneurysm or retroperitoneal hemorrhage. Moderate stool in the colon. Distended gallbladder These results were discussed with Dr. Mccallum, 1030 hours, 02/24/2017. Chest/Abdomen CTA 01/24/17 09:57 IMPRESSION: No thoracic aortic dissection. No gross saddle pulmonary embolus. Minimal bibasilar atelectasis. Upper Extremity MRI 01/25/17 00:00 IMPRESSION: Extensive cellulitis in the distal left upper arm, extending into the mid 3rd left forearm. No bone marrow signal abnormalities worrisome for osteomyelitis. No evidence of deep tissue abscess. There is 7 edema along the superficial surface of the muscles described above in the antecubital fossa region, compatible with myositis. Chest X-Ray 01/26/17 06:00 IMPRESSION: NO ACUTE RADIOGRAPHIC FINDING IN THE CHEST. Assessment & Plan - Diagnosis (1) Septic shock Is this a current diagnosis for this admission?: Yes (2) Cellulitis of left upper extremity Is this a current diagnosis for this admission?: Yes (3) Acute kidney injury Is this a current diagnosis for this admission?: Yes (4) Hypotension Qualifiers: Hypotension type: unspecified hypotension type Qualified Code(s): I95.9 - Hypotension, unspecified Is this a current diagnosis for this admission?: Yes - Plan Summary Plan Summary: Continue treatment
[2017-01-26] MEDS: NORMAL SALINE 1000 ML 1,000 ML IV PRN (19:50)
--- NOTE | 2017-01-26 20:24 | RADIOLOGY REPORT (SQ) ---
EXAM DESCRIPTION: CHEST SINGLE VIEW COMPLETED DATE/TIME: 01/26/2017 7:37 pm REASON FOR STUDY: Tripple lumin Line placement/leaking COMPARISON: 01/26/2017 EXAM PARAMETERS: NUMBER OF VIEWS: One view. TECHNIQUE: Single frontal radiographic view of the chest acquired. RADIATION DOSE: NA LIMITATIONS: None. FINDINGS: LUNGS AND PLEURA: No opacities, masses or pneumothorax. No pleural effusion. MEDIASTINUM AND HILAR STRUCTURES: No masses. Contour normal. HEART AND VASCULAR STRUCTURES: Heart normal in size. Normal vasculature. BONES: No acute findings. HARDWARE: Central line is in place. OTHER: No other significant finding. IMPRESSION: Central line is in place. Catheter tip overlies the SVC. TECHNICAL DOCUMENTATION: JOB ID: [id number]
[2017-01-26] MEDS: DULOXETINE HCL 30 MG CAPSULE.DR PO SCH (21:25)
[2017-01-26] MEDS: CLONIDINE HCL 0.1 MG TABLET PO SCH (21:26)
[2017-01-26] MEDS: TOPIRAMATE 100 MG TABLET PO SCH (21:27)
[2017-01-26] MEDS: POTASSIUM CHLORIDE 20 MEQ/15 ML UDCUP PO SCH (21:28)
[2017-01-27] MEDS: LANSOPRAZOLE 30 MG TAB.RAP.DR PO SCH ×2 (05:09→17:50)
[2017-01-27] MEDS: PIPERACILLIN SODIUM/TAZOBACTAM 3.375 GM in NORMAL SALINE 100 ML IV SCH ×3 (05:10→17:50)
[2017-01-27] MEDS: GABAPENTIN 300 MG CAPSULE PO SCH ×3 (05:10→21:56)
[2017-01-27] MEDS: OXYCODONE HCL IR 5 MG TABLET PO PRN ×2 (05:11→17:50)
[2017-01-27] MEDS: OXYCODONE-ACETAMINOPHEN 5-325 MG TABLET PO PRN (05:12)
[2017-01-27] MEDS: NORMAL SALINE 1000 ML 1,000 ML IV PRN (05:40)
[2017-01-27 06:06] LABS: HEMATOCRIT 29.2 % (36.0-47.0); HGB HCT DIFFERENCE 0.8; MEAN CORPUSCULAR HEMOGLOBIN 30.8 pg (27.0-33.4); MEAN CORPUSCULAR HGB CONC 34.1 g/dL (32.0-36.0); MEAN CORPUSCULAR VOLUME 90 fl (80-97); RED BLOOD COUNT 3.23 10^6/uL (3.72-5.28); RED CELL DISTRIBUTION WIDTH 14.4 % (11.5-14.0); WHITE BLOOD COUNT 10.1 10^3/uL (4.0-10.5)
[2017-01-27 06:13] LABS: ALANINE AMINOTRANSFERASE 23 U/L (9-52); ALBUMIN 2.3 g/dL (3.5-5.0); ALKALINE PHOSPHATASE 203 U/L (38-126); ANION GAP 9 (5-19); ASPARTATE AMINO TRANSFERASE 15 U/L (14-36); BILIRUBIN,DIRECT 0.7 mg/dL (0.0-0.4); BILIRUBIN,TOTAL 0.8 mg/dL (0.2-1.3); BLOOD UREA NITROGEN 11 mg/dL (7-20); CALCIUM 8.3 mg/dL (8.4-10.2); CARBON DIOXIDE 20 mmol/L (22-30); CHLORIDE 116 mmol/L (98-107); CREATININE RESULT 0.91 mg/dL (0.52-1.25); GLUCOSE 93 mg/dL (75-110); POTASSIUM 4.2 mmol/L (3.6-5.0); SODIUM 145.1 mmol/L (137-145); TOTAL PROTEIN 4.9 g/dL (6.3-8.2)
[2017-01-27 06:25] LABS: BAND NEUTROPHILS % (MANUAL) 8 % (3-5); BASOPHILS % (MANUAL) 0 % (0-2); EOSINOPHILS % (MANUAL) 3 % (0-6); LYMPHOCYTES % (MANUAL) 34 % (13-45); TOTAL CELLS COUNTED 100
[2017-01-27 06:26] LABS: ANISOCYTOSIS SLIGHT; TOXIC GRANULATION SLIGHT; TOXIC VACUOLATION PRESENT
--- NOTE | 2017-01-27 08:57 | RADIOLOGY REPORT (SQ) ---
EXAM DESCRIPTION: CHEST SINGLE VIEW COMPLETED DATE/TIME: 01/27/2017 8:39 am REASON FOR STUDY: sepsis COMPARISON: CT angio chest 01/24/2017 AP chest films 01/26/2017, 01/24/2017 EXAM PARAMETERS: NUMBER OF VIEWS: One view. TECHNIQUE: Single frontal radiographic view of the chest acquired. RADIATION DOSE: NA LIMITATIONS: None. FINDINGS: LUNGS AND PLEURA: No opacities, masses or pneumothorax. No pleural effusion. MEDIASTINUM AND HILAR STRUCTURES: No masses. Contour normal. HEART AND VASCULAR STRUCTURES: Heart normal in size. Normal vasculature. BONES: No acute findings. HARDWARE: Right jugular central line tip superior vena cava. OTHER: No other significant finding. IMPRESSION: Right jugular central line tip superior vena cava. No focal infiltrates. No pleural effusions. TECHNICAL DOCUMENTATION: JOB ID: [id number]
[2017-01-27] MEDS: TOPIRAMATE 25 MG TABLET PO SCH (10:23)
[2017-01-27] MEDS: VANCOMYCIN HCL 1,000 MG in DEXTROSE 5%-WATER 250 ML IV SCH (10:23)
[2017-01-27] MEDS: AMLODIPINE BESYLATE 10 MG TABLET PO SCH (10:23)
[2017-01-27] MEDS: MELOXICAM 7.5 MG TABLET PO SCH ×2 (10:23→21:56)
--- NOTE | 2017-01-27 16:37 | PROGRESS NOTE E ---
Progress Note NAME: MANNIE DE OLIVEIRA : 1955 AGE: 61Y DATE: 01/27/2017 ROOM: 531 SUBJECTIVE: The patient is postop day #2, post I and D of left arm abscess/ cellulitis. OBJECTIVE: On examination the left arm swelling appears to be subsiding. The wounds appear to be clean and dry. ASSESSMENT: Cultures came back as group A Beta Streptococcus. She has been on IV vancomycin and Zosyn which should cover the bacteria. Her vital signs have improved and fairly stable. PLAN: She likely will be on IV antibiotics at least for the next 48-72 hours. She will then be [facility] up [facility]. DICTATING PHYSICIAN: EMILY SANCHEZ M.D. [id number] PHY#: [id number] ID: [id number] JOB#: [id number] ACCT: [id number] cc: >
--- NOTE | 2017-01-27 21:30 | PDOC PROGRESS REPORT ---
Subjective Progress Note for:: 01/27/17 Subjective:: Patient was admitted because of septic shock associated with cellulitis of left upper extremity, she is status post incision and drainage. Physical Exam Vital Signs: Temp Pulse Resp BP Pulse Ox 98.7 F 93 16 121/62 99 01/27/17 20:02 01/27/17 20:02 01/27/17 20:02 01/27/17 20:02 01/27/17 20:02 Intake & Output 01/26/17 01/27/17 01/28/17 06:59 06:59 06:59 Intake Total 5717 2045 342 Output Total 5265 1300 Balance 519 745 342 Weight 73.2 kg 73.6 kg General appearance: PRESENT: no acute distress Eye exam: PRESENT: PERRLA Respiratory exam: PRESENT: clear to auscultation alexy Cardiovascular exam: PRESENT: +S1, +S2 GI/Abdominal exam: PRESENT: soft Neurological exam: PRESENT: alert Results Laboratory Results: 01/27/17 05:30 01/27/17 05:30 01/27/17 01/27/17 05:30 05:30 WBC 10.1 RBC 3.23 L Hgb 10.0 L Hct 29.2 L MCV 90 MCH 30.8 MCHC 34.1 RDW 14.4 H Plt Count 270 Seg Neutrophils % Not Reportable Lymphocytes % Not Reportable Monocytes % Not Reportable Eosinophils % Not Reportable Basophils % Not Reportable Absolute Neutrophils Not Reportable Absolute Lymphocytes Not Reportable Absolute Monocytes Not Reportable Absolute Eosinophils Not Reportable Absolute Basophils Not Reportable Sodium 145.1 H Potassium 4.2 Chloride 116 H Carbon Dioxide 20 L Anion Gap 9 BUN 11 Creatinine 0.91 Est GFR ( Amer) > 60 Est GFR (Non-Af Amer) > 60 Glucose 93 Calcium 8.3 L Total Bilirubin 0.8 AST 15 ALT 23 Alkaline Phosphatase 203 H Total Protein 4.9 L Albumin 2.3 L 01/25/17 17:07 Forearm - Left Side Abscess Gram Stain - Final 01/25/17 17:07 Forearm - Left Side Abscess Wound Culture - Final Group A Beta Streptococcus No Anaerobic Organisms 01/24/17 01/24/17 01/24/17 12:59 12:59 18:55 Creatine Kinase 926 H CK-MB (CK-2) 21.90 H 21.60 H Troponin I < 0.012 < 0.012 01/24/17 01/25/17 01/25/17 18:55 01:12 01:12 Creatine Kinase 785 H 476 H CK-MB (CK-2) 13.30 H Troponin I < 0.012 Impressions: Forearm X-Ray 01/24/17 00:00 IMPRESSION: Wound with no osseous abnormality and with no evidence of gas in the subcutaneous tissues. Head CT 01/24/17 09:05 IMPRESSION: NORMAL BRAIN CT WITHOUT CONTRAST. Abdomen/Pelvis CTA 01/24/17 09:57 IMPRESSION: No CT evidence of abdominal aortic aneurysm or retroperitoneal hemorrhage. Moderate stool in the colon. Distended gallbladder These results were discussed with Dr. Mccallum, 1030 hours, 02/24/2017. Chest/Abdomen CTA 01/24/17 09:57 IMPRESSION: No thoracic aortic dissection. No gross saddle pulmonary embolus. Minimal bibasilar atelectasis. Upper Extremity MRI 01/25/17 00:00 IMPRESSION: Extensive cellulitis in the distal left upper arm, extending into the mid 3rd left forearm. No bone marrow signal abnormalities worrisome for osteomyelitis. No evidence of deep tissue abscess. There is 7 edema along the superficial surface of the muscles described above in the antecubital fossa region, compatible with myositis. Chest X-Ray 01/27/17 06:00 IMPRESSION: Right jugular central line tip superior vena cava. No focal infiltrates. No pleural effusions. Assessment & Plan - Diagnosis (1) Septic shock Is this a current diagnosis for this admission?: Yes (2) Cellulitis of left upper extremity Is this a current diagnosis for this admission?: Yes (3) Acute kidney injury Is this a current diagnosis for this admission?: Yes (4) Hypotension Qualifiers: Hypotension type: unspecified hypotension type Qualified Code(s): I95.9 - Hypotension, unspecified Is this a current diagnosis for this admission?: Yes - Plan Summary Plan Summary: Patient was seen by the bedside, she will continue IV antibiotic
[2017-01-27] MEDS: DULOXETINE HCL 30 MG CAPSULE.DR PO SCH (21:56)
[2017-01-27] MEDS: POTASSIUM CHLORIDE 20 MEQ/15 ML UDCUP PO SCH (21:56)
[2017-01-27] MEDS: CLONIDINE HCL 0.1 MG TABLET PO SCH (21:56)
[2017-01-27] MEDS: TOPIRAMATE 100 MG TABLET PO SCH (21:56)
[2017-01-28] MEDS: ENOXAPARIN SODIUM INJ 40 MG/0.4 ML DISP.SYRIN SUBCUT SCH (00:06)
[2017-01-28] MEDS: PIPERACILLIN SODIUM/TAZOBACTAM 3.375 GM in NORMAL SALINE 100 ML IV SCH ×4 (00:07→18:13)
[2017-01-28] MEDS: OXYCODONE-ACETAMINOPHEN 5-325 MG TABLET PO PRN ×2 (00:07→18:13)
[2017-01-28] MEDS: OXYCODONE HCL IR 5 MG TABLET PO PRN ×2 (00:07→12:13)
[2017-01-28] MEDS: NORMAL SALINE 1000 ML 1,000 ML IV PRN (00:14)
[2017-01-28] MEDS: LANSOPRAZOLE 30 MG TAB.RAP.DR PO SCH ×2 (06:15→18:13)
[2017-01-28] MEDS: GABAPENTIN 300 MG CAPSULE PO SCH ×3 (06:15→22:15)
[2017-01-28] MEDS: VANCOMYCIN HCL 1,000 MG in DEXTROSE 5%-WATER 250 ML IV SCH (12:12)
[2017-01-28] MEDS: AMLODIPINE BESYLATE 10 MG TABLET PO SCH (12:12)
[2017-01-28] MEDS: TOPIRAMATE 25 MG TABLET PO SCH (12:12)
[2017-01-28] MEDS: MELOXICAM 7.5 MG TABLET PO SCH ×2 (12:12→22:15)
--- NOTE | 2017-01-28 16:22 | PDOC PROGRESS REPORT ---
Subjective Progress Note for:: 01/28/17 Subjective:: She was seen by the bedside, she had extensive debridement of left upper extremity, on IV antibiotic,group A beta streptococcus was cultured Physical Exam Vital Signs: Temp Pulse Resp BP Pulse Ox 98.3 F 80 17 119/75 98 01/28/17 11:51 01/28/17 11:51 01/28/17 11:51 01/28/17 11:51 01/28/17 11:51 Intake & Output 01/27/17 01/28/17 01/29/17 06:59 06:59 06:59 Intake Total 2045 1082 Output Total 1300 Balance 745 1082 Weight 73.6 kg 76.8 kg General appearance: PRESENT: no acute distress Eye exam: PRESENT: PERRLA Respiratory exam: PRESENT: clear to auscultation alexy Cardiovascular exam: PRESENT: +S1, +S2 GI/Abdominal exam: PRESENT: soft Neurological exam: PRESENT: alert Results Laboratory Results: 01/27/17 05:30 01/27/17 05:30 01/25/17 17:07 Forearm - Left Side Abscess Gram Stain - Final 01/25/17 17:07 Forearm - Left Side Abscess Wound Culture - Final Group A Beta Streptococcus No Anaerobic Organisms 01/24/17 01/24/17 01/24/17 12:59 12:59 18:55 Creatine Kinase 926 H CK-MB (CK-2) 21.90 H 21.60 H Troponin I < 0.012 < 0.012 01/24/17 01/25/17 01/25/17 18:55 01:12 01:12 Creatine Kinase 785 H 476 H CK-MB (CK-2) 13.30 H Troponin I < 0.012 Impressions: Forearm X-Ray 01/24/17 00:00 IMPRESSION: Wound with no osseous abnormality and with no evidence of gas in the subcutaneous tissues. Head CT 01/24/17 09:05 IMPRESSION: NORMAL BRAIN CT WITHOUT CONTRAST. Abdomen/Pelvis CTA 01/24/17 09:57 IMPRESSION: No CT evidence of abdominal aortic aneurysm or retroperitoneal hemorrhage. Moderate stool in the colon. Distended gallbladder These results were discussed with Dr. Mccallum, 1030 hours, 02/24/2017. Chest/Abdomen CTA 01/24/17 09:57 IMPRESSION: No thoracic aortic dissection. No gross saddle pulmonary embolus. Minimal bibasilar atelectasis. Upper Extremity MRI 01/25/17 00:00 IMPRESSION: Extensive cellulitis in the distal left upper arm, extending into the mid 3rd left forearm. No bone marrow signal abnormalities worrisome for osteomyelitis. No evidence of deep tissue abscess. There is 7 edema along the superficial surface of the muscles described above in the antecubital fossa region, compatible with myositis. Chest X-Ray 01/27/17 06:00 IMPRESSION: Right jugular central line tip superior vena cava. No focal infiltrates. No pleural effusions. Assessment & Plan - Diagnosis (1) Septic shock Is this a current diagnosis for this admission?: Yes (2) Cellulitis of left upper extremity Is this a current diagnosis for this admission?: Yes (3) Acute kidney injury Is this a current diagnosis for this admission?: Yes (4) Hypotension Qualifiers: Hypotension type: unspecified hypotension type Qualified Code(s): I95.9 - Hypotension, unspecified Is this a current diagnosis for this admission?: Yes - Plan Summary Plan Summary: continue IV antibiotic
[2017-01-28] MEDS: DULOXETINE HCL 30 MG CAPSULE.DR PO SCH (22:14)
[2017-01-28] MEDS: TOPIRAMATE 100 MG TABLET PO SCH (22:15)
[2017-01-28] MEDS: CLONIDINE HCL 0.1 MG TABLET PO SCH (22:15)
[2017-01-28] MEDS: POTASSIUM CHLORIDE 20 MEQ/15 ML UDCUP PO SCH (22:15)
[2017-01-29] MEDS: OXYCODONE-ACETAMINOPHEN 5-325 MG TABLET PO PRN ×2 (00:15→11:15)
[2017-01-29] MEDS: ENOXAPARIN SODIUM INJ 40 MG/0.4 ML DISP.SYRIN SUBCUT SCH (00:15)
[2017-01-29] MEDS: OXYCODONE HCL IR 5 MG TABLET PO PRN ×2 (00:15→11:14)
[2017-01-29] MEDS: PIPERACILLIN SODIUM/TAZOBACTAM 3.375 GM in NORMAL SALINE 100 ML IV SCH ×4 (00:15→17:57)
[2017-01-29] MEDS: GABAPENTIN 300 MG CAPSULE PO SCH ×3 (06:02→22:42)
[2017-01-29] MEDS: LANSOPRAZOLE 30 MG TAB.RAP.DR PO SCH ×2 (06:02→17:57)
[2017-01-29] MEDS: TOPIRAMATE 25 MG TABLET PO SCH (11:15)
[2017-01-29] MEDS: MELOXICAM 7.5 MG TABLET PO SCH ×2 (11:15→22:42)
[2017-01-29] MEDS: AMLODIPINE BESYLATE 10 MG TABLET PO SCH (11:16)
[2017-01-29] MEDS: VANCOMYCIN HCL 1,000 MG in DEXTROSE 5%-WATER 250 ML IV SCH (11:16)
[2017-01-29 11:23] LABS: CREATININE RESULT 0.88 mg/dL (0.52-1.25)
--- NOTE | 2017-01-29 12:13 | PDOC PROGRESS REPORT ---
Subjective Progress Note for:: 01/29/17 Subjective:: She was seen by the bedside, she is status post excisional debridement of the left upper extremity, she will ultimately need a skin graft, she was advised to stay for IV antibiotic for a total of 2 weeks before discharge to follow with wound clinic. She complained of pain at the site of the incision Physical Exam Vital Signs: Temp Pulse Resp BP Pulse Ox 98.2 F 71 16 118/67 99 01/29/17 07:46 01/29/17 07:46 01/29/17 07:46 01/29/17 07:46 01/29/17 07:46 Intake & Output 01/28/17 01/29/17 01/30/17 06:59 06:59 06:59 Intake Total 1082 1960 Balance 1082 1960 Weight 76.8 kg 76.8 kg General appearance: PRESENT: no acute distress Eye exam: PRESENT: PERRLA Respiratory exam: PRESENT: clear to auscultation alexy Cardiovascular exam: PRESENT: +S1, +S2 GI/Abdominal exam: PRESENT: soft Extremities exam: PRESENT: other - dressing of the left upper extremity Neurological exam: PRESENT: alert, CN II-XII grossly intact Results Laboratory Results: 01/27/17 05:30 01/29/17 10:58 01/29/17 10:58 Creatinine 0.88 Est GFR ( Amer) > 60 Est GFR (Non-Af Amer) > 60 01/25/17 17:07 Forearm - Left Side Abscess Gram Stain - Final 01/25/17 17:07 Forearm - Left Side Abscess Wound Culture - Final Group A Beta Streptococcus No Anaerobic Organisms 01/24/17 01/24/17 01/24/17 12:59 12:59 18:55 Creatine Kinase 926 H CK-MB (CK-2) 21.90 H 21.60 H Troponin I < 0.012 < 0.012 01/24/17 01/25/17 01/25/17 18:55 01:12 01:12 Creatine Kinase 785 H 476 H CK-MB (CK-2) 13.30 H Troponin I < 0.012 Impressions: Forearm X-Ray 01/24/17 00:00 IMPRESSION: Wound with no osseous abnormality and with no evidence of gas in the subcutaneous tissues. Head CT 01/24/17 09:05 IMPRESSION: NORMAL BRAIN CT WITHOUT CONTRAST. Abdomen/Pelvis CTA 01/24/17 09:57 IMPRESSION: No CT evidence of abdominal aortic aneurysm or retroperitoneal hemorrhage. Moderate stool in the colon. Distended gallbladder These results were discussed with Dr. Mccallum, 1030 hours, 02/24/2017. Chest/Abdomen CTA 01/24/17 09:57 IMPRESSION: No thoracic aortic dissection. No gross saddle pulmonary embolus. Minimal bibasilar atelectasis. Upper Extremity MRI 01/25/17 00:00 IMPRESSION: Extensive cellulitis in the distal left upper arm, extending into the mid 3rd left forearm. No bone marrow signal abnormalities worrisome for osteomyelitis. No evidence of deep tissue abscess. There is 7 edema along the superficial surface of the muscles described above in the antecubital fossa region, compatible with myositis. Chest X-Ray 01/27/17 06:00 IMPRESSION: Right jugular central line tip superior vena cava. No focal infiltrates. No pleural effusions. Assessment & Plan - Diagnosis (1) Septic shock Is this a current diagnosis for this admission?: Yes (2) Cellulitis of left upper extremity Is this a current diagnosis for this admission?: Yes (3) Acute kidney injury Is this a current diagnosis for this admission?: Yes (4) Hypotension Qualifiers: Hypotension type: unspecified hypotension type Qualified Code(s): I95.9 - Hypotension, unspecified Is this a current diagnosis for this admission?: Yes - Plan Summary Plan Summary: Continue IV antibiotic for a total of 2 weeks, start Dilaudid for pain, and other treatment
[2017-01-29] MEDS: HYDROMORPHONE HCL INJ/PF 2 MG/ML AMPULE IV PRN ×2 (12:59→20:39)
--- NOTE | 2017-01-29 14:12 | PROGRESS NOTE E ---
Progress Note NAME: MANNIE DE OLIVEIRA : 1955 AGE: 61Y DATE: 01/29/2017 ROOM: 531 SUBJECTIVE: The patient is about 4 days postop. The left hand is swollen this morning. The dressing is dry, the nurses just changed it and cleaned it. The wound appears to be dry. I will check the wound later today when change the dressing. PLAN: The plan is to continue with IV antibiotics per Dr. Pfeiffer, at least 2 weeks this patient with the myositis findings on the MRI. DICTATING PHYSICIAN: EMILY SANCHEZ M.D. [id number] PHY#: [id number] ID: [id number] JOB#: [id number] ACCT: [id number] cc: >
[2017-01-29] MEDS: NORMAL SALINE 1000 ML 1,000 ML IV PRN (17:57)
[2017-01-29] MEDS: POTASSIUM CHLORIDE 20 MEQ/15 ML UDCUP PO SCH (22:42)
[2017-01-29] MEDS: CLONIDINE HCL 0.1 MG TABLET PO SCH (22:42)
[2017-01-29] MEDS: VANCOMYCIN HCL 750 MG in DEXTROSE 5%-WATER 250 ML IV SCH (22:42)
[2017-01-29] MEDS: TOPIRAMATE 100 MG TABLET PO SCH (22:42)
[2017-01-29] MEDS: DULOXETINE HCL 30 MG CAPSULE.DR PO SCH (22:42)
[2017-01-30] MEDS: PIPERACILLIN SODIUM/TAZOBACTAM 3.375 GM in NORMAL SALINE 100 ML IV SCH ×4 (00:18→17:50)
[2017-01-30] MEDS: LANSOPRAZOLE 30 MG TAB.RAP.DR PO SCH ×2 (05:52→16:02)
[2017-01-30] MEDS: GABAPENTIN 300 MG CAPSULE PO SCH ×3 (05:53→21:48)
[2017-01-30] MEDS: HYDROMORPHONE HCL INJ/PF 2 MG/ML AMPULE IV PRN ×3 (06:44→19:43)
--- NOTE | 2017-01-30 08:54 | PDOC PROGRESS REPORT ---
Subjective Progress Note for:: 01/30/17 Subjective:: No new issues. denied any fever or chills. Some degree of pain in left forearm site of cellulitis. No chest pain or difficulty with breathing. No nausea, vomiting, or abdominal pain. Physical Exam Vital Signs: Temp Pulse Resp BP Pulse Ox 98.1 F 70 18 126/66 H 97 01/30/17 07:26 01/30/17 07:26 01/30/17 07:26 01/30/17 07:26 01/30/17 07:26 Intake & Output 01/29/17 01/30/17 01/31/17 06:59 06:59 06:59 Intake Total 1960 1110 Balance 1960 1110 Weight 76.8 kg 76.8 kg General appearance: PRESENT: no acute distress, cooperative, obese Head exam: PRESENT: atraumatic, normocephalic Eye exam: PRESENT: conjunctiva pink, EOMI, PERRLA. ABSENT: scleral icterus Mouth exam: PRESENT: moist Respiratory exam: PRESENT: clear to auscultation alexy Cardiovascular exam: PRESENT: RRR. ABSENT: diastolic murmur, rubs, systolic murmur GI/Abdominal exam: PRESENT: normal bowel sounds, soft. ABSENT: distended, guarding, mass, organolmegaly, rebound, tenderness Extremities exam: ABSENT: pedal edema Musculoskeletal exam: PRESENT: normal inspection Neurological exam: PRESENT: alert, awake, oriented to person, oriented to place , oriented to time, oriented to situation, CN II-XII grossly intact. ABSENT: motor sensory deficit Psychiatric exam: PRESENT: appropriate affect, normal mood. ABSENT: homicidal ideation, suicidal ideation Skin exam: PRESENT: dry, erythema, warm, other - left forearm site of cellulitis with surrounding erythema. ABSENT: intact Results Laboratory Results: 01/27/17 05:30 01/29/17 10:58 01/29/17 10:58 Creatinine 0.88 Est GFR ( Amer) > 60 Est GFR (Non-Af Amer) > 60 01/24/17 13:11 Blood Blood Culture - Final NO GROWTH IN 5 DAYS 01/24/17 12:59 Blood Blood Culture - Final NO GROWTH IN 5 DAYS 01/24/17 01/24/17 01/24/17 12:59 12:59 18:55 Creatine Kinase 926 H CK-MB (CK-2) 21.90 H 21.60 H Troponin I < 0.012 < 0.012 01/24/17 01/25/17 01/25/17 18:55 01:12 01:12 Creatine Kinase 785 H 476 H CK-MB (CK-2) 13.30 H Troponin I < 0.012 Impressions: Forearm X-Ray 01/24/17 00:00 IMPRESSION: Wound with no osseous abnormality and with no evidence of gas in the subcutaneous tissues. Head CT 01/24/17 09:05 IMPRESSION: NORMAL BRAIN CT WITHOUT CONTRAST. Abdomen/Pelvis CTA 01/24/17 09:57 IMPRESSION: No CT evidence of abdominal aortic aneurysm or retroperitoneal hemorrhage. Moderate stool in the colon. Distended gallbladder These results were discussed with Dr. Mccallum, 1030 hours, 02/24/2017. Chest/Abdomen CTA 01/24/17 09:57 IMPRESSION: No thoracic aortic dissection. No gross saddle pulmonary embolus. Minimal bibasilar atelectasis. Upper Extremity MRI 01/25/17 00:00 IMPRESSION: Extensive cellulitis in the distal left upper arm, extending into the mid 3rd left forearm. No bone marrow signal abnormalities worrisome for osteomyelitis. No evidence of deep tissue abscess. There is 7 edema along the superficial surface of the muscles described above in the antecubital fossa region, compatible with myositis. Chest X-Ray 01/27/17 06:00 IMPRESSION: Right jugular central line tip superior vena cava. No focal infiltrates. No pleural effusions. Assessment & Plan - Diagnosis (1) Cellulitis of left upper extremity Is this a current diagnosis for this admission?: YesPlan: Continue IV Vancomycin and Zosyn coverage. Follow up on culture findings. Obtain CBC with diff. (2) Acute kidney injury Is this a current diagnosis for this admission?: YesPlan: Improving. Continue IV fluid support. Obtain CMP. - Time Time Spent with patient: 25-34 minutes Medications reviewed and adjusted accordingly: Yes Anticipated discharge: Home with Homehealth Within: Other - Inpatient Certification Based on my medical assessment, after consideration of the patient's comorbidities, presenting symptoms, or acuity I expect that the services needed warrant INPATIENT care.: Yes I certify that my determination is in accordance with my understanding of Medicare's requirements for reasonable and necessary INPATIENT services [42 CFR 412.3e].: Yes Medical Necessity: Need Close Monitoring Due to Risk of Patient Decompensation, Need For IV Fluids, Need For Continuous Telemetry Monitoring, Need for IV Antibiotics, Risk of Complication if Not Cared For in Hospital Post Hospital Care: D/C Digital Intern Documentation - Plan Summary Plan Summary: See covering attending physician orders.
[2017-01-30] MEDS: MELOXICAM 7.5 MG TABLET PO SCH ×2 (09:58→21:48)
[2017-01-30] MEDS: TOPIRAMATE 25 MG TABLET PO SCH (09:58)
[2017-01-30] MEDS: VANCOMYCIN HCL 750 MG in DEXTROSE 5%-WATER 250 ML IV SCH ×2 (09:59→21:47)
[2017-01-30] MEDS: ENOXAPARIN SODIUM INJ 40 MG/0.4 ML DISP.SYRIN SUBCUT SCH (09:59)
[2017-01-30] MEDS: AMLODIPINE BESYLATE 10 MG TABLET PO SCH (09:59)
[2017-01-30 10:57] LABS: HEMATOCRIT 34.1 % (36.0-47.0); HEMOGLOBIN 11.1 g/dL (12.0-15.5); HGB HCT DIFFERENCE -0.8; MEAN CORPUSCULAR HEMOGLOBIN 30.2 pg (27.0-33.4); MEAN CORPUSCULAR HGB CONC 32.7 g/dL (32.0-36.0); MEAN CORPUSCULAR VOLUME 92 fl (80-97); RED BLOOD COUNT 3.69 10^6/uL (3.72-5.28); RED CELL DISTRIBUTION WIDTH 14.2 % (11.5-14.0); WHITE BLOOD COUNT 13.9 10^3/uL (4.0-10.5)
[2017-01-30 11:10] LABS: ALANINE AMINOTRANSFERASE 26 U/L (9-52); ALBUMIN 3.4 g/dL (3.5-5.0); ALKALINE PHOSPHATASE 141 U/L (38-126); ANION GAP 10 (5-19); ASPARTATE AMINO TRANSFERASE 16 U/L (14-36); BILIRUBIN,DIRECT 0.5 mg/dL (0.0-0.4); BILIRUBIN,TOTAL 0.5 mg/dL (0.2-1.3); BLOOD UREA NITROGEN 5 mg/dL (7-20); CALCIUM 8.9 mg/dL (8.4-10.2); CARBON DIOXIDE 22 mmol/L (22-30); CHLORIDE 112 mmol/L (98-107); GLUCOSE 80 mg/dL (75-110); POTASSIUM 4.2 mmol/L (3.6-5.0); SODIUM 143.5 mmol/L (137-145); TOTAL PROTEIN 6.8 g/dL (6.3-8.2)
[2017-01-30 11:45] LABS: BAND NEUTROPHILS % (MANUAL) 1 % (3-5); BASOPHILS % (MANUAL) 0 % (0-2); EOSINOPHILS % (MANUAL) 3 % (0-6); LYMPHOCYTES % (MANUAL) 19 % (13-45); TOTAL CELLS COUNTED 100; TOXIC GRANULATION 1+
--- NOTE | 2017-01-30 13:07 | PDOC PROGRESS REPORT ---
Subjective Progress Note for:: 01/30/17 Subjective:: There is no complaints. Tolerating dressing changes. Physical Exam Vital Signs: Temp Pulse Resp BP Pulse Ox 98.0 F 69 16 107/53 L 100 01/30/17 11:28 01/30/17 11:28 01/30/17 11:28 01/30/17 11:28 01/30/17 11:28 Intake & Output 01/29/17 01/30/17 01/31/17 06:59 06:59 06:59 Intake Total 1960 1110 Balance 1960 1110 Weight 76.8 kg 76.8 kg General appearance: PRESENT: no acute distress Extremities exam: PRESENT: other - Wound packing removed from both medial and lateral extremity wounds. There is a small abrasion wound Results Laboratory Results: 01/30/17 10:39 01/30/17 10:39 01/30/17 01/30/17 10:39 10:39 WBC 13.9 H RBC 3.69 L Hgb 11.1 L Hct 34.1 L MCV 92 MCH 30.2 MCHC 32.7 RDW 14.2 H Plt Count 525 H Seg Neutrophils % Lymphocytes % DEMURRAGE WORKER Monocytes % DEMURRAGE WORKER Eosinophils % DEMURRAGE WORKER Basophils % DEMURRAGE WORKER Absolute Neutrophils DEMURRAGE WORKER Absolute Lymphocytes DEMURRAGE WORKER Absolute Monocytes DEMURRAGE WORKER Absolute Eosinophils DEMURRAGE WORKER Absolute Basophils DEMURRAGE WORKER Sodium 143.5 Potassium 4.2 Chloride 112 H Carbon Dioxide 22 Anion Gap 10 BUN 5 L Creatinine 0.90 Est GFR ( Amer) > 60 Est GFR (Non-Af Amer) > 60 Glucose 80 Calcium 8.9 Total Bilirubin 0.5 AST 16 ALT 26 Alkaline Phosphatase 141 H Total Protein 6.8 Albumin 3.4 L 01/24/17 13:11 Blood Blood Culture - Final NO GROWTH IN 5 DAYS 01/24/17 12:59 Blood Blood Culture - Final NO GROWTH IN 5 DAYS 01/24/17 01/24/17 01/24/17 12:59 12:59 18:55 Creatine Kinase 926 H CK-MB (CK-2) 21.90 H 21.60 H Troponin I < 0.012 < 0.012 01/24/17 01/25/17 01/25/17 18:55 01:12 01:12 Creatine Kinase 785 H 476 H CK-MB (CK-2) 13.30 H Troponin I < 0.012 Impressions: Forearm X-Ray 01/24/17 00:00 IMPRESSION: Wound with no osseous abnormality and with no evidence of gas in the subcutaneous tissues. Head CT 01/24/17 09:05 IMPRESSION: NORMAL BRAIN CT WITHOUT CONTRAST. Abdomen/Pelvis CTA 01/24/17 09:57 IMPRESSION: No CT evidence of abdominal aortic aneurysm or retroperitoneal hemorrhage. Moderate stool in the colon. Distended gallbladder These results were discussed with Dr. Mccallum, 1030 hours, 02/24/2017. Chest/Abdomen CTA 01/24/17 09:57 IMPRESSION: No thoracic aortic dissection. No gross saddle pulmonary embolus. Minimal bibasilar atelectasis. Upper Extremity MRI 01/25/17 00:00 IMPRESSION: Extensive cellulitis in the distal left upper arm, extending into the mid 3rd left forearm. No bone marrow signal abnormalities worrisome for osteomyelitis. No evidence of deep tissue abscess. There is 7 edema along the superficial surface of the muscles described above in the antecubital fossa region, compatible with myositis. Chest X-Ray 01/27/17 06:00 IMPRESSION: Right jugular central line tip superior vena cava. No focal infiltrates. No pleural effusions. Assessment & Plan - Diagnosis (1) Cellulitis of left upper extremity Is this a current diagnosis for this admission?: YesPlan: Postoperative day 6 status post I&D packing, wound healing satisfactorily by secondary intention, large, but no tracking of the wounds. Recommendations 1. Get patient into the shower, teach patient how to do dressing changes, and set her up for home health. 2. Patient can be weaned off of intravenous antibiotics and switch to appropriate p.o. antibiotics as She has no fever no cellulitis. 3. [facility] with [facility] basis.
[2017-01-30] MEDS: DULOXETINE HCL 30 MG CAPSULE.DR PO SCH (21:47)
[2017-01-30] MEDS: CLONIDINE HCL 0.1 MG TABLET PO SCH (21:48)
[2017-01-30] MEDS: TOPIRAMATE 100 MG TABLET PO SCH (21:48)
[2017-01-30] MEDS: POTASSIUM CHLORIDE 20 MEQ/15 ML UDCUP PO SCH (21:48)
[2017-01-31] MEDS: PIPERACILLIN SODIUM/TAZOBACTAM 3.375 GM in NORMAL SALINE 100 ML IV SCH ×4 (01:27→17:34)
[2017-01-31] MEDS: HYDROMORPHONE HCL INJ/PF 2 MG/ML AMPULE IV PRN ×3 (01:27→18:03)
[2017-01-31] MEDS: LANSOPRAZOLE 30 MG TAB.RAP.DR PO SCH ×2 (06:06→16:38)
[2017-01-31] MEDS: GABAPENTIN 300 MG CAPSULE PO SCH ×3 (06:06→22:03)
[2017-01-31] MEDS: OXYCODONE-ACETAMINOPHEN 5-325 MG TABLET PO PRN ×2 (08:38→15:30)
[2017-01-31] MEDS: OXYCODONE HCL IR 5 MG TABLET PO PRN ×2 (08:38→15:29)
[2017-01-31] MEDS: ENOXAPARIN SODIUM INJ 40 MG/0.4 ML DISP.SYRIN SUBCUT SCH (09:49)
[2017-01-31] MEDS: AMLODIPINE BESYLATE 10 MG TABLET PO SCH (09:50)
[2017-01-31] MEDS: MELOXICAM 7.5 MG TABLET PO SCH ×2 (09:50→22:02)
[2017-01-31] MEDS: TOPIRAMATE 25 MG TABLET PO SCH (09:50)
[2017-01-31 11:29] LABS: CREATININE RESULT 0.99 mg/dL (0.52-1.25)
[2017-01-31] MEDS: NORMAL SALINE 1000 ML 1,000 ML IV PRN (13:22)
--- NOTE | 2017-01-31 18:23 | PDOC PROGRESS REPORT ---
Subjective Progress Note for:: 01/31/17 Subjective:: No new issues. denied any fever or chills. Left forearm site of cellulitis abscess s/p I&D healing satisfactorily. Dressing okay. No chest pain or difficulty with breathing. No nausea, vomiting, or abdominal pain. Blood culture is no growth x 5 days. Wound culture mainly Group A Beta Streptococcus. Physical Exam Vital Signs: Temp Pulse Resp BP Pulse Ox 98.4 F 71 18 109/53 L 99 01/31/17 16:16 01/31/17 16:16 01/31/17 16:16 01/31/17 16:16 01/31/17 16:16 Intake & Output 01/30/17 01/31/17 02/01/17 06:59 06:59 06:59 Intake Total 1110 1450 1200 Balance 1110 1450 1200 Weight 76.8 kg 71.7 kg Physical Exam: General appearance: PRESENT: no acute distress, cooperative, obese Head exam: PRESENT: atraumatic, normocephalic Eye exam: PRESENT: conjunctiva pink, EOMI, PERRLA. ABSENT: scleral icterus Mouth exam: PRESENT: moist Respiratory exam: PRESENT: clear to auscultation alexy Cardiovascular exam: PRESENT: RRR. ABSENT: diastolic murmur, rubs, systolic murmur GI/Abdominal exam: PRESENT: normal bowel sounds, soft. ABSENT: distended, guarding, mass, organolmegaly, rebound, tenderness Extremities exam: ABSENT: pedal edema Musculoskeletal exam: PRESENT: normal inspection Neurological exam: PRESENT: alert, awake, oriented to person, oriented to place , oriented to time, oriented to situation, CN II-XII grossly intact. ABSENT: motor sensory deficit Psychiatric exam: PRESENT: appropriate affect, normal mood. ABSENT: homicidal ideation, suicidal ideation Skin exam: PRESENT: dry, erythema, warm, other - left forearm site of cellulitis with surrounding erythema. ABSENT: intact Results Laboratory Results: 01/30/17 10:39 01/31/17 10:33 01/31/17 10:33 Creatinine 0.99 Est GFR ( Amer) > 60 Est GFR (Non-Af Amer) 57 L 01/24/17 01/24/17 01/24/17 12:59 12:59 18:55 Creatine Kinase 926 H CK-MB (CK-2) 21.90 H 21.60 H Troponin I < 0.012 < 0.012 01/24/17 01/25/17 01/25/17 18:55 01:12 01:12 Creatine Kinase 785 H 476 H CK-MB (CK-2) 13.30 H Troponin I < 0.012 Impressions: Forearm X-Ray 01/24/17 00:00 IMPRESSION: Wound with no osseous abnormality and with no evidence of gas in the subcutaneous tissues. Head CT 01/24/17 09:05 IMPRESSION: NORMAL BRAIN CT WITHOUT CONTRAST. Abdomen/Pelvis CTA 01/24/17 09:57 IMPRESSION: No CT evidence of abdominal aortic aneurysm or retroperitoneal hemorrhage. Moderate stool in the colon. Distended gallbladder These results were discussed with Dr. Mccallum, 1030 hours, 02/24/2017. Chest/Abdomen CTA 01/24/17 09:57 IMPRESSION: No thoracic aortic dissection. No gross saddle pulmonary embolus. Minimal bibasilar atelectasis. Upper Extremity MRI 01/25/17 00:00 IMPRESSION: Extensive cellulitis in the distal left upper arm, extending into the mid 3rd left forearm. No bone marrow signal abnormalities worrisome for osteomyelitis. No evidence of deep tissue abscess. There is 7 edema along the superficial surface of the muscles described above in the antecubital fossa region, compatible with myositis. Chest X-Ray 01/27/17 06:00 IMPRESSION: Right jugular central line tip superior vena cava. No focal infiltrates. No pleural effusions. Assessment & Plan - Diagnosis (1) Cellulitis of left upper extremity Is this a current diagnosis for this admission?: Yes (2) Acute kidney injury Is this a current diagnosis for this admission?: Yes - Time Time Spent with patient: 25-34 minutes Medications reviewed and adjusted accordingly: Yes Anticipated discharge: Home with Homehealth Within: within 48 hours - Inpatient Certification Based on my medical assessment, after consideration of the patient's comorbidities, presenting symptoms, or acuity I expect that the services needed warrant INPATIENT care.: Yes I certify that my determination is in accordance with my understanding of Medicare's requirements for reasonable and necessary INPATIENT services [42 CFR 412.3e].: Yes Medical Necessity: Need Close Monitoring Due to Risk of Patient Decompensation, Need For IV Fluids, Need For Continuous Telemetry Monitoring, Need for IV Antibiotics, Risk of Complication if Not Cared For in Hospital Post Hospital Care: D/C Fabrication Manager Documentation - Plan Summary Plan Summary: D/C Vancomycin. Maintain on IV Zosyn for today with intent to switch to oral Augmentin tomorrow. Did discuss with patient in the absence of fever and continue improvement in clinical status will pln for d/c in next 48 hours. Continue all other current medication management.
--- NOTE | 2017-01-31 20:12 | PROGRESS NOTE E ---
Progress Note NAME: MANNIE DE OLIVEIRA : 1955 AGE: 61Y DATE: 01/31/2017 ROOM: 531 SUBJECTIVE: The patient appears to be progressing quite well. She is not complaining afebrile and her left hand swelling has been resolved. She still has a little redness and edema along the left upper arm though much less compared to the past few days. Her white count was still elevated to 13.9 yesterday. ASSESSMENT AND PLAN: She is tolerating wound dressing changes and the wound appears to be getting better according to the nurses. I will check the wound tomorrow. At any rate, continue with IV antibiotic therapy. DICTATING PHYSICIAN: EMILY SANCHEZ M.D. [id number] PHY#: [id number] ID: [id number] JOB#: [id number] ACCT: [id number] cc: >
[2017-01-31] MEDS: TOPIRAMATE 100 MG TABLET PO SCH (22:02)
[2017-01-31] MEDS: DULOXETINE HCL 30 MG CAPSULE.DR PO SCH (22:03)
[2017-01-31] MEDS: POTASSIUM CHLORIDE 20 MEQ/15 ML UDCUP PO SCH (22:03)
[2017-01-31] MEDS: CLONIDINE HCL 0.1 MG TABLET PO SCH (22:25)
[2017-02-01] MEDS: PIPERACILLIN SODIUM/TAZOBACTAM 3.375 GM in NORMAL SALINE 100 ML IV SCH ×4 (00:26→17:33)
[2017-02-01] MEDS: HYDROMORPHONE HCL INJ/PF 2 MG/ML AMPULE IV PRN ×5 (00:33→22:57)
[2017-02-01] MEDS: NORMAL SALINE 1000 ML 1,000 ML IV PRN ×2 (00:33→17:36)
[2017-02-01] MEDS: GABAPENTIN 300 MG CAPSULE PO SCH ×3 (05:27→22:57)
[2017-02-01] MEDS: LANSOPRAZOLE 30 MG TAB.RAP.DR PO SCH ×2 (05:27→17:33)
[2017-02-01 07:49] LABS: HEMOGLOBIN 10.4 g/dL (12.0-15.5); HGB HCT DIFFERENCE 0.2; MEAN CORPUSCULAR HEMOGLOBIN 31.2 pg (27.0-33.4); MEAN CORPUSCULAR HGB CONC 33.6 g/dL (32.0-36.0); MEAN CORPUSCULAR VOLUME 93 fl (80-97); RED BLOOD COUNT 3.35 10^6/uL (3.72-5.28); RED CELL DISTRIBUTION WIDTH 14.4 % (11.5-14.0); WHITE BLOOD COUNT 9.6 10^3/uL (4.0-10.5)
[2017-02-01 07:58] LABS: ANION GAP 10 (5-19); BLOOD UREA NITROGEN 8 mg/dL (7-20); CALCIUM 8.9 mg/dL (8.4-10.2); CARBON DIOXIDE 21 mmol/L (22-30); CHLORIDE 113 mmol/L (98-107); CREATININE RESULT 0.92 mg/dL (0.52-1.25); GLUCOSE 99 mg/dL (75-110); POTASSIUM 4.3 mmol/L (3.6-5.0); SODIUM 143.5 mmol/L (137-145)
[2017-02-01 08:31] LABS: BAND NEUTROPHILS % (MANUAL) 1 % (3-5); BASOPHILS % (MANUAL) 0 % (0-2); EOSINOPHILS % (MANUAL) 3 % (0-6); HYPOCHROMASIA SLIGHT; LYMPHOCYTES % (MANUAL) 34 % (13-45); POLYCHROMASIA SLIGHT; TOTAL CELLS COUNTED 100
[2017-02-01] MEDS: AMLODIPINE BESYLATE 10 MG TABLET PO SCH (09:53)
[2017-02-01] MEDS: ENOXAPARIN SODIUM INJ 40 MG/0.4 ML DISP.SYRIN SUBCUT SCH (09:53)
[2017-02-01] MEDS: TOPIRAMATE 25 MG TABLET PO SCH (09:53)
[2017-02-01] MEDS: MELOXICAM 7.5 MG TABLET PO SCH ×2 (09:53→22:58)
--- NOTE | 2017-02-01 17:27 | PROGRESS NOTE E ---
Progress Note NAME: MANNIE DE OLIVEIRA : 1955 AGE: 61Y DATE: 02/01/2017 ROOM: 531 SUBJECTIVE: The patient's left arm looks better. The swelling in the left hand has definitely subsided. The wounds were inspected. The medial site is clean and dry and appears that the edges can be approximated without any skin graft. However, on the lateral longer incision it also looks very good with pink, fair granulation tissue. This second longer wound may need to have a skin graft in the near future. ASSESSMENT AND PLAN: In the meantime there is still a little induration around the mid part of the forearm and she will need a few more days of IV antibiotic therapy. Continue the wet to dry dressings for left forearm wounds and we will decide on the timing as far as primary/or delayed primary closure of the medial incision and drainage site. DICTATING PHYSICIAN: EMILY SANCHEZ M.D. [id number] PHY#: [id number] ID: [id number] JOB#: [id number] ACCT: [id number] cc: >
--- NOTE | 2017-02-01 19:51 | PDOC PROGRESS REPORT ---
Subjective Progress Note for:: 02/01/17 Subjective:: No fever or chills. Left forearm I&D wound granulating very well. Dressing okay. No chest pain or difficulty with breathing. No nausea, vomiting, or abdominal pain. Physical Exam Vital Signs: Temp Pulse Resp BP Pulse Ox 98.6 F 80 18 123/67 99 02/01/17 15:28 02/01/17 15:28 02/01/17 15:28 02/01/17 15:28 02/01/17 15:28 Intake & Output 01/31/17 02/01/17 02/02/17 06:59 06:59 06:59 Intake Total 1450 1440 1240 Balance 1450 1440 1240 Weight 71.7 kg Physical Exam: General appearance: PRESENT: no acute distress, cooperative, obese Head exam: PRESENT: atraumatic, normocephalic Eye exam: PRESENT: conjunctiva pink, EOMI, PERRLA. ABSENT: scleral icterus Mouth exam: PRESENT: moist Respiratory exam: PRESENT: clear to auscultation alexy Cardiovascular exam: PRESENT: RRR. ABSENT: diastolic murmur, rubs, systolic murmur GI/Abdominal exam: PRESENT: normal bowel sounds, soft. ABSENT: distended, guarding, mass, organomegaly, rebound, tenderness Extremities exam: ABSENT: pedal edema Musculoskeletal exam: PRESENT: normal inspection Neurological exam: PRESENT: alert, awake, oriented to person, oriented to place , oriented to time, oriented to situation, CN II-XII grossly intact. ABSENT: motor sensory deficit Psychiatric exam: PRESENT: appropriate affect, normal mood. ABSENT: homicidal ideation, suicidal ideation Skin exam: PRESENT: dry, erythema, warm, other - left forearm I&D site granulating satisfactorily. Results Laboratory Results: 02/01/17 05:14 02/01/17 05:14 02/01/17 02/01/17 05:14 05:14 WBC 9.6 RBC 3.35 L Hgb 10.4 L Hct 31.0 L MCV 93 MCH 31.2 MCHC 33.6 RDW 14.4 H Plt Count 463 H Seg Neutrophils % Not Reportable Lymphocytes % Not Reportable Monocytes % Not Reportable Eosinophils % Not Reportable Basophils % Not Reportable Absolute Neutrophils Not Reportable Absolute Lymphocytes Not Reportable Absolute Monocytes Not Reportable Absolute Eosinophils Not Reportable Absolute Basophils Not Reportable Sodium 143.5 Potassium 4.3 Chloride 113 H Carbon Dioxide 21 L Anion Gap 10 BUN 8 Creatinine 0.92 Est GFR ( Amer) > 60 Est GFR (Non-Af Amer) > 60 Glucose 99 Calcium 8.9 01/24/17 01/24/17 01/24/17 12:59 12:59 18:55 Creatine Kinase 926 H CK-MB (CK-2) 21.90 H 21.60 H Troponin I < 0.012 < 0.012 01/24/17 01/25/17 01/25/17 18:55 01:12 01:12 Creatine Kinase 785 H 476 H CK-MB (CK-2) 13.30 H Troponin I < 0.012 Impressions: Forearm X-Ray 01/24/17 00:00 IMPRESSION: Wound with no osseous abnormality and with no evidence of gas in the subcutaneous tissues. Head CT 01/24/17 09:05 IMPRESSION: NORMAL BRAIN CT WITHOUT CONTRAST. Abdomen/Pelvis CTA 01/24/17 09:57 IMPRESSION: No CT evidence of abdominal aortic aneurysm or retroperitoneal hemorrhage. Moderate stool in the colon. Distended gallbladder These results were discussed with Dr. Mccallum, 1030 hours, 02/24/2017. Chest/Abdomen CTA 01/24/17 09:57 IMPRESSION: No thoracic aortic dissection. No gross saddle pulmonary embolus. Minimal bibasilar atelectasis. Upper Extremity MRI 01/25/17 00:00 IMPRESSION: Extensive cellulitis in the distal left upper arm, extending into the mid 3rd left forearm. No bone marrow signal abnormalities worrisome for osteomyelitis. No evidence of deep tissue abscess. There is 7 edema along the superficial surface of the muscles described above in the antecubital fossa region, compatible with myositis. Chest X-Ray 01/27/17 06:00 IMPRESSION: Right jugular central line tip superior vena cava. No focal infiltrates. No pleural effusions. Assessment & Plan - Diagnosis (1) Cellulitis of left upper extremity Is this a current diagnosis for this admission?: Yes Plan: Continue IV Zosyn coverage due to 02/02/17. Change to oral Augmentin upon discharge. (2) Acute kidney injury Is this a current diagnosis for this admission?: Yes Plan: Improving. Continue IV fluid support. (3) Chronic pain syndrome Is this a current diagnosis for this admission?: Yes Plan: Patient reported attendance at pain management facility prior to admission. (4) Chronic, continuous use of opioids Is this a current diagnosis for this admission?: Yes Plan: Patient reported attendance at pain management facility prior to admission. - Time Time Spent with patient: 25-34 minutes Medications reviewed and adjusted accordingly: Yes Anticipated discharge: Home Within: within 24 hours - Inpatient Certification Based on my medical assessment, after consideration of the patient's comorbidities, presenting symptoms, or acuity I expect that the services needed warrant INPATIENT care.: Yes Medical Necessity: Need Close Monitoring Due to Risk of Patient Decompensation, Need For IV Fluids, Need For Continuous Telemetry Monitoring, Need for IV Antibiotics Post Hospital Care: D/C Geotechnical Field Technician Documentation - Plan Summary Plan Summary: Continue IV Zosyn until . I discussed possible discharge home tomorrow after last does of IV Zosyn schedule for 11:59 hour.
[2017-02-01] MEDS: CLONIDINE HCL 0.1 MG TABLET PO SCH (22:56)
[2017-02-01] MEDS: DULOXETINE HCL 30 MG CAPSULE.DR PO SCH (22:57)
[2017-02-01] MEDS: TOPIRAMATE 100 MG TABLET PO SCH (22:57)
[2017-02-01] MEDS: POTASSIUM CHLORIDE 20 MEQ/15 ML UDCUP PO SCH (22:58)
[2017-02-02] MEDS: PIPERACILLIN SODIUM/TAZOBACTAM 3.375 GM in NORMAL SALINE 100 ML IV SCH ×2 (01:27→05:46)
[2017-02-02] MEDS: HYDROMORPHONE HCL INJ/PF 2 MG/ML AMPULE IV PRN ×5 (04:57→22:09)
[2017-02-02] MEDS: LANSOPRAZOLE 30 MG TAB.RAP.DR PO SCH ×2 (05:45→18:00)
[2017-02-02] MEDS: GABAPENTIN 300 MG CAPSULE PO SCH ×3 (05:46→21:17)
--- NOTE | 2017-02-02 08:19 | PDOC PROGRESS REPORT ---
Subjective Progress Note for:: 02/02/17 Subjective:: No complaints. Physical Exam Vital Signs: Temp Pulse Resp BP Pulse Ox 98.2 F 64 16 113/66 99 02/02/17 07:29 02/02/17 07:29 02/02/17 07:29 02/02/17 07:29 02/02/17 07:29 Intake & Output 02/01/17 02/02/17 02/03/17 06:59 06:59 06:59 Intake Total 1440 1720 Balance 1440 1720 Weight 71.7 kg General appearance: PRESENT: no acute distress, cooperative Extremities exam: PRESENT: other - Left arm wounds are wide but very clean with no purulent drainage there is surrounding soft tissue mild erythema. No fluctuance. Results Laboratory Results: 02/01/17 05:14 02/01/17 05:14 02/01/17 02/01/17 05:14 05:14 WBC 9.6 RBC 3.35 L Hgb 10.4 L Hct 31.0 L MCV 93 MCH 31.2 MCHC 33.6 RDW 14.4 H Plt Count 463 H Seg Neutrophils % Not Reportable Lymphocytes % Not Reportable Monocytes % Not Reportable Eosinophils % Not Reportable Basophils % Not Reportable Absolute Neutrophils Not Reportable Absolute Lymphocytes Not Reportable Absolute Monocytes Not Reportable Absolute Eosinophils Not Reportable Absolute Basophils Not Reportable Sodium 143.5 Potassium 4.3 Chloride 113 H Carbon Dioxide 21 L Anion Gap 10 BUN 8 Creatinine 0.92 Est GFR ( Amer) > 60 Est GFR (Non-Af Amer) > 60 Glucose 99 Calcium 8.9 01/24/17 01/24/17 01/24/17 12:59 12:59 18:55 Creatine Kinase 926 H CK-MB (CK-2) 21.90 H 21.60 H Troponin I < 0.012 < 0.012 01/24/17 01/25/17 01/25/17 18:55 01:12 01:12 Creatine Kinase 785 H 476 H CK-MB (CK-2) 13.30 H Troponin I < 0.012 Impressions: Forearm X-Ray 01/24/17 00:00 IMPRESSION: Wound with no osseous abnormality and with no evidence of gas in the subcutaneous tissues. Head CT 01/24/17 09:05 IMPRESSION: NORMAL BRAIN CT WITHOUT CONTRAST. Abdomen/Pelvis CTA 01/24/17 09:57 IMPRESSION: No CT evidence of abdominal aortic aneurysm or retroperitoneal hemorrhage. Moderate stool in the colon. Distended gallbladder These results were discussed with Dr. Mccallum, 1030 hours, 02/24/2017. Chest/Abdomen CTA 01/24/17 09:57 IMPRESSION: No thoracic aortic dissection. No gross saddle pulmonary embolus. Minimal bibasilar atelectasis. Upper Extremity MRI 01/25/17 00:00 IMPRESSION: Extensive cellulitis in the distal left upper arm, extending into the mid 3rd left forearm. No bone marrow signal abnormalities worrisome for osteomyelitis. No evidence of deep tissue abscess. There is 7 edema along the superficial surface of the muscles described above in the antecubital fossa region, compatible with myositis. Chest X-Ray 01/27/17 06:00 IMPRESSION: Right jugular central line tip superior vena cava. No focal infiltrates. No pleural effusions. Assessment & Plan - Diagnosis (1) infected hematoma Is this a current diagnosis for this admission?: Yes Plan: Status post debridement. Wounds look very clean. Still with some surrounding erythema. Patient will be continued on IV antibiotics. Will go ahead and place her on a wound VAC and hopefully we can avoid need for a skin graft.
[2017-02-02] MEDS: MELOXICAM 7.5 MG TABLET PO SCH ×2 (09:50→21:16)
[2017-02-02] MEDS: ENOXAPARIN SODIUM INJ 40 MG/0.4 ML DISP.SYRIN SUBCUT SCH (09:51)
[2017-02-02] MEDS: TOPIRAMATE 25 MG TABLET PO SCH (09:51)
[2017-02-02] MEDS: AMLODIPINE BESYLATE 10 MG TABLET PO SCH (09:51)
[2017-02-02] MEDS: OXYCODONE-ACETAMINOPHEN 5-325 MG TABLET PO PRN ×2 (14:29→21:24)
--- NOTE | 2017-02-02 18:05 | PDOC PROGRESS REPORT ---
Subjective Progress Note for:: 02/02/17 Subjective:: No fever or chills. Left forearm I&D wound granulating very well with wound vac device in use. No chest pain or difficulty with breathing. No nausea, vomiting, or abdominal pain. Physical Exam Vital Signs: Temp Pulse Resp BP Pulse Ox 98.8 F 73 18 104/67 98 02/02/17 15:41 02/02/17 15:41 02/02/17 15:41 02/02/17 15:41 02/02/17 15:41 Intake & Output 02/01/17 02/02/17 02/03/17 06:59 06:59 06:59 Intake Total 1440 1720 Balance 1440 1720 Weight 71.7 kg Physical Exam: General appearance: PRESENT: no acute distress, cooperative, obese Head exam: PRESENT: atraumatic, normocephalic Eye exam: PRESENT: conjunctiva pink, EOMI, PERRLA. ABSENT: scleral icterus Mouth exam: PRESENT: moist Respiratory exam: PRESENT: clear to auscultation alexy Cardiovascular exam: PRESENT: RRR. ABSENT: diastolic murmur, rubs, systolic murmur GI/Abdominal exam: PRESENT: normal bowel sounds, soft. ABSENT: distended, guarding, mass, organomegaly, rebound, tenderness Extremities exam: ABSENT: pedal edema Musculoskeletal exam: PRESENT: normal inspection Neurological exam: PRESENT: alert, awake, oriented to person, oriented to place , oriented to time, oriented to situation, CN II-XII grossly intact. ABSENT: motor sensory deficit Psychiatric exam: PRESENT: appropriate affect, normal mood. ABSENT: homicidal ideation, suicidal ideation Skin exam: PRESENT: dry, erythema, warm, other - left forearm I&D site granulating satisfactorily. Results Laboratory Results: 02/01/17 05:14 02/01/17 05:14 01/24/17 01/24/17 01/24/17 12:59 12:59 18:55 Creatine Kinase 926 H CK-MB (CK-2) 21.90 H 21.60 H Troponin I < 0.012 < 0.012 01/24/17 01/25/17 01/25/17 18:55 01:12 01:12 Creatine Kinase 785 H 476 H CK-MB (CK-2) 13.30 H Troponin I < 0.012 Impressions: Forearm X-Ray 01/24/17 00:00 IMPRESSION: Wound with no osseous abnormality and with no evidence of gas in the subcutaneous tissues. Head CT 01/24/17 09:05 IMPRESSION: NORMAL BRAIN CT WITHOUT CONTRAST. Abdomen/Pelvis CTA 01/24/17 09:57 IMPRESSION: No CT evidence of abdominal aortic aneurysm or retroperitoneal hemorrhage. Moderate stool in the colon. Distended gallbladder These results were discussed with Dr. Mccallum, 1030 hours, 02/24/2017. Chest/Abdomen CTA 01/24/17 09:57 IMPRESSION: No thoracic aortic dissection. No gross saddle pulmonary embolus. Minimal bibasilar atelectasis. Upper Extremity MRI 01/25/17 00:00 IMPRESSION: Extensive cellulitis in the distal left upper arm, extending into the mid 3rd left forearm. No bone marrow signal abnormalities worrisome for osteomyelitis. No evidence of deep tissue abscess. There is 7 edema along the superficial surface of the muscles described above in the antecubital fossa region, compatible with myositis. Chest X-Ray 01/27/17 06:00 IMPRESSION: Right jugular central line tip superior vena cava. No focal infiltrates. No pleural effusions. Assessment & Plan - Diagnosis (1) Cellulitis of left upper extremity Is this a current diagnosis for this admission?: Yes (2) Acute kidney injury Is this a current diagnosis for this admission?: Yes (3) Chronic pain syndrome Is this a current diagnosis for this admission?: Yes (4) Chronic, continuous use of opioids Is this a current diagnosis for this admission?: Yes - Time Time Spent with patient: 25-34 minutes Medications reviewed and adjusted accordingly: Yes - Inpatient Certification Based on my medical assessment, after consideration of the patient's comorbidities, presenting symptoms, or acuity I expect that the services needed warrant INPATIENT care.: Yes I certify that my determination is in accordance with my understanding of Medicare's requirements for reasonable and necessary INPATIENT services [42 CFR 412.3e].: Yes Medical Necessity: Need Close Monitoring Due to Risk of Patient Decompensation, Need For Continuous Telemetry Monitoring, Need for IV Antibiotics, Risk of Complication if Not Cared For in Hospital Post Hospital Care: D/C Reading Instructor Documentation - Plan Summary Plan Summary: Complete Zosyn coverage. Start on Augmentin 500/125 mg p.o tid. Arrange for home wound vac management. Possible d/c tomorrow if no fever or clinical deterioration.
[2017-02-02] MEDS: CLONIDINE HCL 0.1 MG TABLET PO SCH (21:09)
[2017-02-02] MEDS: AMOXICILLIN TR/POT CLAVULANATE 500-125 MG TAB PO SCH (21:16)
[2017-02-02] MEDS: DULOXETINE HCL 30 MG CAPSULE.DR PO SCH (21:17)
[2017-02-02] MEDS: POTASSIUM CHLORIDE 20 MEQ/15 ML UDCUP PO SCH (21:18)
[2017-02-02] MEDS: TOPIRAMATE 100 MG TABLET PO SCH (21:18)
[2017-02-03] MEDS: HYDROMORPHONE HCL INJ/PF 2 MG/ML AMPULE IV PRN ×2 (02:03→06:09)
[2017-02-03] MEDS: OXYCODONE-ACETAMINOPHEN 5-325 MG TABLET PO PRN ×4 (04:57→23:37)
[2017-02-03] MEDS: GABAPENTIN 300 MG CAPSULE PO SCH ×3 (05:00→22:48)
[2017-02-03] MEDS: AMOXICILLIN TR/POT CLAVULANATE 500-125 MG TAB PO SCH (05:00)
[2017-02-03] MEDS: LANSOPRAZOLE 30 MG TAB.RAP.DR PO SCH ×2 (05:01→17:19)
[2017-02-03] MEDS: TOPIRAMATE 25 MG TABLET PO SCH (09:14)
[2017-02-03] MEDS: ENOXAPARIN SODIUM INJ 40 MG/0.4 ML DISP.SYRIN SUBCUT SCH (09:14)
[2017-02-03] MEDS: MELOXICAM 7.5 MG TABLET PO SCH ×2 (09:14→22:39)
[2017-02-03] MEDS: AMLODIPINE BESYLATE 10 MG TABLET PO SCH (09:15)
[2017-02-03] MEDS: ATORVASTATIN CALCIUM 10 MG TABLET PO SCH (09:16)
--- NOTE | 2017-02-03 09:39 | PDOC PROGRESS REPORT ---
Subjective Progress Note for:: 02/03/17 Subjective:: no complaints Physical Exam Vital Signs: Temp Pulse Resp BP Pulse Ox 97.8 F 79 16 125/75 95 02/03/17 07:24 02/03/17 07:24 02/03/17 07:24 02/03/17 07:24 02/03/17 07:24 Intake & Output 02/02/17 02/03/17 02/04/17 06:59 06:59 06:59 Intake Total 1720 1740 Balance 1720 1740 Weight 71.7 kg Extremities exam: PRESENT: +1 edema, other - Left forearm: mild edema with erythema, woundvac in place, no odor, no tenderness Results Laboratory Results: 02/01/17 05:14 02/01/17 05:14 01/24/17 01/24/17 01/24/17 12:59 12:59 18:55 Creatine Kinase 926 H CK-MB (CK-2) 21.90 H 21.60 H Troponin I < 0.012 < 0.012 01/24/17 01/25/17 01/25/17 18:55 01:12 01:12 Creatine Kinase 785 H 476 H CK-MB (CK-2) 13.30 H Troponin I < 0.012 Impressions: Forearm X-Ray 01/24/17 00:00 IMPRESSION: Wound with no osseous abnormality and with no evidence of gas in the subcutaneous tissues. Head CT 01/24/17 09:05 IMPRESSION: NORMAL BRAIN CT WITHOUT CONTRAST. Abdomen/Pelvis CTA 01/24/17 09:57 IMPRESSION: No CT evidence of abdominal aortic aneurysm or retroperitoneal hemorrhage. Moderate stool in the colon. Distended gallbladder These results were discussed with Dr. Mccallum, 1030 hours, 02/24/2017. Chest/Abdomen CTA 01/24/17 09:57 IMPRESSION: No thoracic aortic dissection. No gross saddle pulmonary embolus. Minimal bibasilar atelectasis. Upper Extremity MRI 01/25/17 00:00 IMPRESSION: Extensive cellulitis in the distal left upper arm, extending into the mid 3rd left forearm. No bone marrow signal abnormalities worrisome for osteomyelitis. No evidence of deep tissue abscess. There is 7 edema along the superficial surface of the muscles described above in the antecubital fossa region, compatible with myositis. Chest X-Ray 01/27/17 06:00 IMPRESSION: Right jugular central line tip superior vena cava. No focal infiltrates. No pleural effusions. Assessment & Plan - Plan Summary Plan Summary: A/ left forearm cellulitis: erythema still present WoundVac on left forearm wound x 2 Cx of hematoma significant for streptococcus P/ Discontinue Augmentin start Nafcillin 1 gr IV q6 patient to be discharged when cellulitis has completely resolved Hepolock IVF Tylenol/Aleve for pain only
[2017-02-03] MEDS: ACETAMINOPHEN 325 MG TABLET PO PRN (10:10)
[2017-02-03] MEDS: OXYCODONE HCL IR 5 MG TABLET PO PRN ×3 (11:14→23:37)
[2017-02-03] MEDS: NAFCILLIN SODIUM 1 GM in DEXTROSE 5%-WATER 50 ML IV SCH ×3 (11:21→23:37)
[2017-02-03] MEDS ORDERED: NAFCILLIN SODIUM INJ 2 GM VIAL IV SCH (12:00)
--- NOTE | 2017-02-03 15:17 | PDOC DISCHARGE SUMMARY ---
General - Admit/Disc Date/PCP Admission Date/Primary Care Provider: 01/24/17 12:09 DASIA KESSLER MD Discharge Date: 02/03/17 - Discharge Diagnosis (1) Cellulitis of left upper extremity Is this a current diagnosis for this admission?: Yes (2) Acute kidney injury Is this a current diagnosis for this admission?: Yes (3) Chronic pain syndrome Is this a current diagnosis for this admission?: Yes (4) Chronic, continuous use of opioids Is this a current diagnosis for this admission?: Yes - Additional Information Resuscitation Status: Full Code Discharge Diet: Regular Discharge Activity: Activity As Tolerated Home Medications: Amlodipine Besylate [Norvasc 10 mg Tablet] 10 mg PO DAILY 01/24/17 Clonidine HCl [Catapres 0.3 mg Tablet] 0.3 mg PO DAILY 01/24/17 Duloxetine HCl [Cymbalta] 60 mg PO QHS 01/24/17 Gabapentin [Neurontin 300 mg Capsule] 300 mg PO Q8 01/24/17 Lovastatin [Altoprev] 20 mg PO [id number] 01/24/17 Meloxicam [Mobic 7.5 mg Tablet] 7.5 mg PO Q12 01/24/17 Oxycodone HCl [Oxycodone HCl 10 MG Tablet] 10 mg PO Q12HP PRN 01/24/17 Oxycodone HCl/Acetaminophen [Percocet 10-325 mg Tablet] 1 tab PO Q6HP PRN Tizanidine HCl [Zanaflex 4 mg Tablet] 4 mg PO Q8HP PRN 01/24/17 Topiramate [Topamax] 50 mg PO DAILY 01/24/17 Topiramate [Topamax] 100 mg PO QHS 01/24/17 Trazodone HCl [Desyrel 50 mg Tablet] 50 mg PO HSP PRN 01/24/17 Amox Tr/Potassium Clavulanate [Augmentin 875-125 mg Tablet] 1 tab PO BID #20 tablet 02/03/17 History of Present Illness History of Present Illness: MANNIE DE OLIVEIRA is a 61 year old female Patient was brought to the emergency room for evaluation of altered mental status, the emergency room when she arrived she was in septic shock, the blood pressure was extremely low there was associated leukocytosis and erythema of the left upper extremity. Patient fell last week sustaining injury to the left upper arm this was treated outpatient with antibiotic and topical creams she subsequently developed hematoma that was aspirated and subsequently she had incision and drainage and it seems that it is secondarily infected and that is the potential source of sepsis it seems. In the emergency room she was extensively evaluated with CT scans of the chest abdomen and pelvis. Patient was resuscitated in the emergency room with IV fluid empirically covered with antibiotic including vancomycin, Zosyn and Rocephin. I saw her in the emergency room she she does respond she was alert though she was confused earlier, there was associated acute kidney injury with lactic acidosis. Hospital Course Hospital Course: Patient responded to IV antibiotic therapy including Rocephin, Zosyn, Vancomycin and eventually changed to oral Augmentin. Her blood culture was no growth x 5 days. Her abscess I&D wound culture did grew group A Beta streptococcus. She remain afebrile x 72 hours with resolution of leukocytosis. Her left forearm wound site still demonstrate some degree of erythema. She is currently on wound Vac therapy ad she will be discharge home o wound vac with home health agency visiting nurse service. She will follow up with Dr Kessler on 02/09/17 an with the surgical group as instructed. Physical Exam Vital Signs: Temp Pulse Resp BP Pulse Ox 97.8 F 79 16 125/75 95 02/03/17 07:24 02/03/17 07:24 02/03/17 07:24 02/03/17 07:24 02/03/17 07:24 Intake & Output 02/02/17 02/03/17 02/04/17 06:59 06:59 06:59 Intake Total 1720 1740 Balance 1720 1740 Weight 71.7 kg Physical Exam: General appearance: PRESENT: no acute distress, cooperative, obese Head exam: PRESENT: atraumatic, normocephalic Eye exam: PRESENT: conjunctiva pink, EOMI, PERRLA. ABSENT: scleral icterus Mouth exam: PRESENT: moist Respiratory exam: PRESENT: clear to auscultation alexy Cardiovascular exam: PRESENT: RRR. ABSENT: diastolic murmur, rubs, systolic murmur GI/Abdominal exam: PRESENT: normal bowel sounds, soft. ABSENT: distended, guarding, mass, organomegaly, rebound, tenderness Extremities exam: ABSENT: pedal edema Musculoskeletal exam: PRESENT: normal inspection Neurological exam: PRESENT: alert, awake, oriented to person, oriented to place , oriented to time, oriented to situation, CN II-XII grossly intact. ABSENT: motor sensory deficit Psychiatric exam: PRESENT: appropriate affect, normal mood. ABSENT: homicidal ideation, suicidal ideation Skin exam: PRESENT: dry, erythema, warm, other - left forearm I&D site granulating satisfactorily. Results Laboratory Results: 02/01/17 05:14 02/01/17 05:14 01/24/17 01/24/17 01/24/17 12:59 12:59 18:55 Creatine Kinase 926 H CK-MB (CK-2) 21.90 H 21.60 H Troponin I < 0.012 < 0.012 01/24/17 01/25/17 01/25/17 18:55 01:12 01:12 Creatine Kinase 785 H 476 H CK-MB (CK-2) 13.30 H Troponin I < 0.012 Impressions: Forearm X-Ray 01/24/17 00:00 IMPRESSION: Wound with no osseous abnormality and with no evidence of gas in the subcutaneous tissues. Head CT 01/24/17 09:05 IMPRESSION: NORMAL BRAIN CT WITHOUT CONTRAST. Abdomen/Pelvis CTA 01/24/17 09:57 IMPRESSION: No CT evidence of abdominal aortic aneurysm or retroperitoneal hemorrhage. Moderate stool in the colon. Distended gallbladder These results were discussed with Dr. Mccallum, 1030 hours, 02/24/2017. Chest/Abdomen CTA 01/24/17 09:57 IMPRESSION: No thoracic aortic dissection. No gross saddle pulmonary embolus. Minimal bibasilar atelectasis. Upper Extremity MRI 01/25/17 00:00 IMPRESSION: Extensive cellulitis in the distal left upper arm, extending into the mid 3rd left forearm. No bone marrow signal abnormalities worrisome for osteomyelitis. No evidence of deep tissue abscess. There is 7 edema along the superficial surface of the muscles described above in the antecubital fossa region, compatible with myositis. Chest X-Ray 01/27/17 06:00 IMPRESSION: Right jugular central line tip superior vena cava. No focal infiltrates. No pleural effusions. Qualifiers PATEINT BEING DISCHARGED WITH ANY OF THE FOLLOWING DIAGNOSIS?: No Plan Discharge Plan: Discharge home today with [facility] visiting nurse service and wound vac. Follow up with Dr Kessler on 02/09/17 and with surgical group as instructed. Time Spent: Greater than 30 Minutes - More than 50% of the consultation time was spent in medication reconciliation, post care plan management and discussion with the patient.
[2017-02-03] MEDS: CLONIDINE HCL 0.1 MG TABLET PO SCH (22:39)
[2017-02-03] MEDS: DULOXETINE HCL 30 MG CAPSULE.DR PO SCH (22:39)
[2017-02-03] MEDS: TOPIRAMATE 100 MG TABLET PO SCH (22:39)
[2017-02-03] MEDS: POTASSIUM CHLORIDE 20 MEQ/15 ML UDCUP PO SCH (22:54)
[2017-02-04] MEDS: NAFCILLIN SODIUM 1 GM in DEXTROSE 5%-WATER 50 ML IV SCH ×4 (06:10→23:23)
[2017-02-04] MEDS: OXYCODONE-ACETAMINOPHEN 5-325 MG TABLET PO PRN ×3 (06:14→21:32)
[2017-02-04] MEDS: LANSOPRAZOLE 30 MG TAB.RAP.DR PO SCH ×2 (06:14→16:09)
[2017-02-04] MEDS: GABAPENTIN 300 MG CAPSULE PO SCH ×3 (06:14→21:30)
[2017-02-04] MEDS: OXYCODONE HCL IR 5 MG TABLET PO PRN ×3 (06:15→21:32)
--- NOTE | 2017-02-04 10:37 | PDOC PROGRESS REPORT ---
Subjective Progress Note for:: 02/04/17 Subjective:: Patient is currently doing fair. Patient's denied any chest pain denied any shortness of the breath patients waiting for the wound VAC to go home Physical Exam Vital Signs: Temp Pulse Resp BP Pulse Ox 97.8 F 88 16 112/62 95 02/04/17 00:00 02/04/17 00:00 02/04/17 00:00 02/04/17 00:00 02/03/17 20:00 Intake & Output 02/03/17 02/04/17 02/05/17 06:59 06:59 06:59 Intake Total 1740 120 Output Total 0 Balance 1740 120 Weight 68.9 kg General appearance: PRESENT: no acute distress, well-developed, well-nourished Head exam: PRESENT: atraumatic, normocephalic Eye exam: PRESENT: conjunctiva pink, EOMI, PERRLA. ABSENT: scleral icterus Ear exam: PRESENT: normal external ear exam Mouth exam: PRESENT: moist, tongue midline Neck exam: PRESENT: full ROM. ABSENT: carotid bruit, JVD, lymphadenopathy, thyromegaly Cardiovascular exam: PRESENT: RRR. ABSENT: diastolic murmur, rubs, systolic murmur Pulses: PRESENT: normal dorsalis pedis pul, +2 pedal pulses bilateral Vascular exam: PRESENT: normal capillary refill GI/Abdominal exam: PRESENT: normal bowel sounds, soft. ABSENT: distended, guarding, mass, organolmegaly, rebound, tenderness Rectal exam: PRESENT: deferred Extremities exam: PRESENT: other Additional comments: On the left upper extremity wound VAC is present Neurological exam: PRESENT: alert, awake, oriented to person, oriented to place , oriented to time, oriented to situation, CN II-XII grossly intact. ABSENT: motor sensory deficit Psychiatric exam: PRESENT: appropriate affect, normal mood. ABSENT: homicidal ideation, suicidal ideation Skin exam: PRESENT: dry, intact, warm. ABSENT: cyanosis, rash Results Laboratory Results: 02/01/17 05:14 02/01/17 05:14 01/24/17 01/24/17 01/24/17 12:59 12:59 18:55 Creatine Kinase 926 H CK-MB (CK-2) 21.90 H 21.60 H Troponin I < 0.012 < 0.012 08/02/0201/25/17 01/25/17 18:55 01:12 01:12 Creatine Kinase 785 H 476 H CK-MB (CK-2) 13.30 H Troponin I < 0.012 Impressions: Forearm X-Ray 01/24/17 00:00 IMPRESSION: Wound with no osseous abnormality and with no evidence of gas in the subcutaneous tissues. Head CT 01/24/17 09:05 IMPRESSION: NORMAL BRAIN CT WITHOUT CONTRAST. Abdomen/Pelvis CTA 01/24/17 09:57 IMPRESSION: No CT evidence of abdominal aortic aneurysm or retroperitoneal hemorrhage. Moderate stool in the colon. Distended gallbladder These results were discussed with Dr. Mccallum, 1030 hours, 02/24/2017. Chest/Abdomen CTA 01/24/17 09:57 IMPRESSION: No thoracic aortic dissection. No gross saddle pulmonary embolus. Minimal bibasilar atelectasis. Upper Extremity MRI 01/25/17 00:00 IMPRESSION: Extensive cellulitis in the distal left upper arm, extending into the mid 3rd left forearm. No bone marrow signal abnormalities worrisome for osteomyelitis. No evidence of deep tissue abscess. There is 7 edema along the superficial surface of the muscles described above in the antecubital fossa region, compatible with myositis. Chest X-Ray 01/27/17 06:00 IMPRESSION: Right jugular central line tip superior vena cava. No focal infiltrates. No pleural effusions. Assessment & Plan - Diagnosis (1) Cellulitis of left arm Is this a current diagnosis for this admission?: Yes (2) Chronic pain syndrome Is this a current diagnosis for this admission?: Yes (3) Sepsis Is this a current diagnosis for this admission?: Yes - Time Time Spent with patient: 15-24 minutes Medications reviewed and adjusted accordingly: Yes Anticipated discharge: Other Within: Other - Inpatient Certification Medical Necessity: Significant Comorbidiites Make Outpatient Treatment Too Risky Post Hospital Care: D/C Office Helper Documentation - Plan Summary Plan Summary: cont curr med
[2017-02-04] MEDS: AMLODIPINE BESYLATE 10 MG TABLET PO SCH (11:34)
[2017-02-04] MEDS: ATORVASTATIN CALCIUM 10 MG TABLET PO SCH (11:43)
[2017-02-04] MEDS: ENOXAPARIN SODIUM INJ 40 MG/0.4 ML DISP.SYRIN SUBCUT SCH (11:43)
[2017-02-04] MEDS: MELOXICAM 7.5 MG TABLET PO SCH ×2 (11:43→21:30)
[2017-02-04] MEDS: TOPIRAMATE 25 MG TABLET PO SCH (11:44)
--- NOTE | 2017-02-04 12:38 | PDOC PROGRESS REPORT ---
Subjective Progress Note for:: 02/04/17 Subjective:: No complaints of Physical Exam Vital Signs: Temp Pulse Resp BP Pulse Ox 97.8 F 88 16 112/62 95 02/04/17 00:00 02/04/17 00:00 02/04/17 00:00 02/04/17 00:00 02/03/17 20:00 Intake & Output 02/03/17 02/04/17 02/05/17 06:59 06:59 06:59 Intake Total 1740 120 Output Total 0 Balance 1740 120 Weight 68.9 kg Extremities exam: PRESENT: full ROM, other Musculoskeletal exam: PRESENT: full ROM - LUE: forearm with WoundVac in place, no erythema, minimal induration, no odor or drainage, improved ROM and hand strength Results Laboratory Results: 02/01/17 05:14 02/01/17 05:14 01/24/17 01/24/17 01/24/17 12:59 12:59 18:55 Creatine Kinase 926 H CK-MB (CK-2) 21.90 H 21.60 H Troponin I < 0.012 < 0.012 01/24/17 01/25/17 01/25/17 18:55 01:12 01:12 Creatine Kinase 785 H 476 H CK-MB (CK-2) 13.30 H Troponin I < 0.012 Impressions: Forearm X-Ray 01/24/17 00:00 IMPRESSION: Wound with no osseous abnormality and with no evidence of gas in the subcutaneous tissues. Head CT 01/24/17 09:05 IMPRESSION: NORMAL BRAIN CT WITHOUT CONTRAST. Abdomen/Pelvis CTA 01/24/17 09:57 IMPRESSION: No CT evidence of abdominal aortic aneurysm or retroperitoneal hemorrhage. Moderate stool in the colon. Distended gallbladder These results were discussed with Dr. Mccallum, 1030 hours, 02/24/2017. Chest/Abdomen CTA 01/24/17 09:57 IMPRESSION: No thoracic aortic dissection. No gross saddle pulmonary embolus. Minimal bibasilar atelectasis. Upper Extremity MRI 01/25/17 00:00 IMPRESSION: Extensive cellulitis in the distal left upper arm, extending into the mid 3rd left forearm. No bone marrow signal abnormalities worrisome for osteomyelitis. No evidence of deep tissue abscess. There is 7 edema along the superficial surface of the muscles described above in the antecubital fossa region, compatible with myositis. Chest X-Ray 01/27/17 06:00 IMPRESSION: Right jugular central line tip superior vena cava. No focal infiltrates. No pleural effusions. Assessment & Plan - Diagnosis (1) Cellulitis of left arm Is this a current diagnosis for this admission?: Yes - Plan Summary Plan Summary: A/ S/P I&D left infected hematoma cellulitis much improved after changing antibiotic to nafcillin P/ continue nafcillin for additional 24 hr possible discharge in 24-48 hr ROM left hand and forearm
[2017-02-04] MEDS: ACETAMINOPHEN 325 MG TABLET PO PRN (13:42)
[2017-02-04] MEDS: CLONIDINE HCL 0.1 MG TABLET PO SCH (21:29)
[2017-02-04] MEDS: DULOXETINE HCL 30 MG CAPSULE.DR PO SCH (21:29)
[2017-02-04] MEDS: TOPIRAMATE 100 MG TABLET PO SCH (21:31)
[2017-02-04] MEDS: POTASSIUM CHLORIDE 20 MEQ/15 ML UDCUP PO SCH (21:35)
[2017-02-05] MEDS: GABAPENTIN 300 MG CAPSULE PO SCH ×3 (06:00→21:54)
[2017-02-05] MEDS: OXYCODONE HCL IR 5 MG TABLET PO PRN ×3 (06:00→20:26)
[2017-02-05] MEDS: LANSOPRAZOLE 30 MG TAB.RAP.DR PO SCH ×2 (06:00→17:55)
[2017-02-05] MEDS: OXYCODONE-ACETAMINOPHEN 5-325 MG TABLET PO PRN ×3 (06:00→20:27)
[2017-02-05 06:24] LABS: ABSOLUTE BASOPHILS # (AUTO) 0.3 10^3/uL (0.0-0.2); ABSOLUTE EOSINOPHILS # (AUTO) 0.2 10^3/uL (0.0-0.6); ABSOLUTE MONOCYTES (AUTO) 0.6 10^3/uL (0.1-1.4); ABSOLUTE NEUT (AUTO) 2.9 10^3/uL (1.7-8.2); ANION GAP 11 (5-19); BASOPHILS % (AUTO) 3.8 % (0-2); BLOOD UREA NITROGEN 15 mg/dL (7-20); CALCIUM 9.5 mg/dL (8.4-10.2); CARBON DIOXIDE 23 mmol/L (22-30); CHLORIDE 110 mmol/L (98-107); CREATININE RESULT 0.91 mg/dL (0.52-1.25); EOSINOPHILS % (AUTO) 2.7 % (0-6); GLUCOSE 86 mg/dL (75-110); HEMATOCRIT 34.1 % (36.0-47.0); HEMOGLOBIN 11.4 g/dL (12.0-15.5); HGB HCT DIFFERENCE 0.1; LYMPHOCYTES % (AUTO) 42.6 % (13-45); MEAN CORPUSCULAR HEMOGLOBIN 30.9 pg (27.0-33.4); MEAN CORPUSCULAR HGB CONC 33.4 g/dL (32.0-36.0); MEAN CORPUSCULAR VOLUME 93 fl (80-97); MONOCYTES % (AUTO) 9.2 % (3-13); POTASSIUM 4.1 mmol/L (3.6-5.0); RED BLOOD COUNT 3.68 10^6/uL (3.72-5.28); RED CELL DISTRIBUTION WIDTH 14.5 % (11.5-14.0); SEGMENTED NEUTROPHILS % (AUTO) 41.7 % (42-78)
[2017-02-05] MEDS: NAFCILLIN SODIUM 1 GM in DEXTROSE 5%-WATER 50 ML IV SCH (06:47)
--- NOTE | 2017-02-05 09:36 | PDOC PROGRESS REPORT ---
Subjective Progress Note for:: 02/05/17 Subjective:: Patient is currently doing fair. Patient's denied any chest pain denied any shortness of the breath patients waiting for the wound VAC to go home Physical Exam Vital Signs: Temp Pulse Resp BP Pulse Ox 98.5 F 65 15 107/48 L 99 02/05/17 04:00 02/05/17 04:00 02/05/17 04:00 02/05/17 04:00 02/05/17 04:00 Intake & Output 02/04/17 02/05/17 02/06/17 06:59 06:59 06:59 Intake Total 120 2230 Output Total 0 Balance 120 2230 Weight 68.9 kg 68.9 kg General appearance: PRESENT: no acute distress, well-developed, well-nourished Head exam: PRESENT: atraumatic, normocephalic Eye exam: PRESENT: conjunctiva pink, EOMI, PERRLA. ABSENT: scleral icterus Ear exam: PRESENT: normal external ear exam Mouth exam: PRESENT: moist, tongue midline Neck exam: PRESENT: full ROM. ABSENT: carotid bruit, JVD, lymphadenopathy, thyromegaly Cardiovascular exam: PRESENT: RRR. ABSENT: diastolic murmur, rubs, systolic murmur Pulses: PRESENT: normal dorsalis pedis pul, +2 pedal pulses bilateral Vascular exam: PRESENT: normal capillary refill GI/Abdominal exam: PRESENT: normal bowel sounds, soft. ABSENT: distended, guarding, mass, organolmegaly, rebound, tenderness Rectal exam: PRESENT: deferred Neurological exam: PRESENT: alert, awake, oriented to person, oriented to place , oriented to time, oriented to situation, CN II-XII grossly intact. ABSENT: motor sensory deficit Psychiatric exam: PRESENT: appropriate affect, normal mood. ABSENT: homicidal ideation, suicidal ideation Skin exam: PRESENT: dry, intact, warm. ABSENT: cyanosis, rash Results Laboratory Results: 02/05/17 05:08 02/05/17 05:08 02/05/17 02/05/17 05:08 05:08 WBC 7.0 RBC 3.68 L Hgb 11.4 L Hct 34.1 L MCV 93 MCH 30.9 MCHC 33.4 RDW 14.5 H Plt Count 492 H Seg Neutrophils % 41.7 L Lymphocytes % 42.6 Monocytes % 9.2 Eosinophils % 2.7 Basophils % 3.8 H Absolute Neutrophils 2.9 Absolute Lymphocytes 3.0 Absolute Monocytes 0.6 Absolute Eosinophils 0.2 Absolute Basophils 0.3 H Sodium 144.0 Potassium 4.1 Chloride 110 H Carbon Dioxide 23 Anion Gap 11 BUN 15 Creatinine 0.91 Est GFR ( Amer) > 60 Est GFR (Non-Af Amer) > 60 Glucose 86 Calcium 9.5 01/24/17 01/24/17 01/24/17 12:59 12:59 18:55 Creatine Kinase 926 H CK-MB (CK-2) 21.90 H 21.60 H Troponin I < 0.012 < 0.012 01/24/17 01/25/17 01/25/17 18:55 01:12 01:12 Creatine Kinase 785 H 476 H CK-MB (CK-2) 13.30 H Troponin I < 0.012 Impressions: Forearm X-Ray 01/24/17 00:00 IMPRESSION: Wound with no osseous abnormality and with no evidence of gas in the subcutaneous tissues. Head CT 01/24/17 09:05 IMPRESSION: NORMAL BRAIN CT WITHOUT CONTRAST. Abdomen/Pelvis CTA 01/24/17 09:57 IMPRESSION: No CT evidence of abdominal aortic aneurysm or retroperitoneal hemorrhage. Moderate stool in the colon. Distended gallbladder These results were discussed with Dr. Mccallum, 1030 hours, 02/24/2017. Chest/Abdomen CTA 01/24/17 09:57 IMPRESSION: No thoracic aortic dissection. No gross saddle pulmonary embolus. Minimal bibasilar atelectasis. Upper Extremity MRI 01/25/17 00:00 IMPRESSION: Extensive cellulitis in the distal left upper arm, extending into the mid 3rd left forearm. No bone marrow signal abnormalities worrisome for osteomyelitis. No evidence of deep tissue abscess. There is 7 edema along the superficial surface of the muscles described above in the antecubital fossa region, compatible with myositis. Chest X-Ray 01/27/17 06:00 IMPRESSION: Right jugular central line tip superior vena cava. No focal infiltrates. No pleural effusions. Assessment & Plan - Diagnosis (1) Cellulitis of left arm Is this a current diagnosis for this admission?: Yes (2) Chronic pain syndrome Is this a current diagnosis for this admission?: Yes (3) Sepsis Is this a current diagnosis for this admission?: Yes - Time Time Spent with patient: Less than 15 minutes Medications reviewed and adjusted accordingly: Yes Anticipated discharge: Home Within: Other - Inpatient Certification Medical Necessity: Need for IV Antibiotics Post Hospital Care: D/C Line Maintainer Section Documentation - Plan Summary Plan Summary: cont curr med
[2017-02-05] MEDS: ENOXAPARIN SODIUM INJ 40 MG/0.4 ML DISP.SYRIN SUBCUT SCH (10:04)
[2017-02-05] MEDS: MELOXICAM 7.5 MG TABLET PO SCH ×2 (10:04→21:54)
[2017-02-05] MEDS: TOPIRAMATE 25 MG TABLET PO SCH (10:04)
[2017-02-05] MEDS: ATORVASTATIN CALCIUM 10 MG TABLET PO SCH (10:04)
[2017-02-05] MEDS: AMLODIPINE BESYLATE 10 MG TABLET PO SCH (10:09)
[2017-02-05] MEDS: AMOXICILLIN TR/POT CLAVULANATE 500-125 MG TAB PO SCH ×2 (13:22→21:54)
--- NOTE | 2017-02-05 14:42 | PDOC PROGRESS REPORT ---
Subjective Progress Note for:: 02/05/17 Subjective:: comfortable Physical Exam Vital Signs: Temp Pulse Resp BP Pulse Ox 98.1 F 78 14 115/61 99 02/05/17 11:56 02/05/17 11:56 02/05/17 11:56 02/05/17 11:56 02/05/17 11:56 Intake & Output 02/04/17 02/05/17 02/06/17 06:59 06:59 06:59 Intake Total 120 2230 780 Output Total 0 Balance 120 2230 780 Weight 68.9 kg 68.9 kg Extremities exam: PRESENT: +1 edema, other - left upper extremity: no cellulitis, some toft tissue induration, no pain on palpation, WoundVac in place Results Laboratory Results: 02/05/17 05:08 02/05/17 05:08 02/05/17 02/05/17 05:08 05:08 WBC 7.0 RBC 3.68 L Hgb 11.4 L Hct 34.1 L MCV 93 MCH 30.9 MCHC 33.4 RDW 14.5 H Plt Count 492 H Seg Neutrophils % 41.7 L Lymphocytes % 42.6 Monocytes % 9.2 Eosinophils % 2.7 Basophils % 3.8 H Absolute Neutrophils 2.9 Absolute Lymphocytes 3.0 Absolute Monocytes 0.6 Absolute Eosinophils 0.2 Absolute Basophils 0.3 H Sodium 144.0 Potassium 4.1 Chloride 110 H Carbon Dioxide 23 Anion Gap 11 BUN 15 Creatinine 0.91 Est GFR ( Amer) > 60 Est GFR (Non-Af Amer) > 60 Glucose 86 Calcium 9.5 01/24/17 01/24/17 01/24/17 12:59 12:59 18:55 Creatine Kinase 926 H CK-MB (CK-2) 21.90 H 21.60 H Troponin I < 0.012 < 0.012 01/24/17 01/25/17 01/25/17 18:55 01:12 01:12 Creatine Kinase 785 H 476 H CK-MB (CK-2) 13.30 H Troponin I < 0.012 Impressions: Forearm X-Ray 01/24/17 00:00 IMPRESSION: Wound with no osseous abnormality and with no evidence of gas in the subcutaneous tissues. Head CT 01/24/17 09:05 IMPRESSION: NORMAL BRAIN CT WITHOUT CONTRAST. Abdomen/Pelvis CTA 01/24/17 09:57 IMPRESSION: No CT evidence of abdominal aortic aneurysm or retroperitoneal hemorrhage. Moderate stool in the colon. Distended gallbladder These results were discussed with Dr. Mccallum, 1030 hours, 02/24/2017. Chest/Abdomen CTA 01/24/17 09:57 IMPRESSION: No thoracic aortic dissection. No gross saddle pulmonary embolus. Minimal bibasilar atelectasis. Upper Extremity MRI 01/25/17 00:00 IMPRESSION: Extensive cellulitis in the distal left upper arm, extending into the mid 3rd left forearm. No bone marrow signal abnormalities worrisome for osteomyelitis. No evidence of deep tissue abscess. There is 7 edema along the superficial surface of the muscles described above in the antecubital fossa region, compatible with myositis. Chest X-Ray 01/27/17 06:00 IMPRESSION: Right jugular central line tip superior vena cava. No focal infiltrates. No pleural effusions. Assessment & Plan - Diagnosis (1) Cellulitis of left arm Is this a current diagnosis for this admission?: Yes - Plan Summary Plan Summary: A/ S/P I&D left forearm infected hematoma cellulitis resolveded after changing antibiotic to nafcillin; Patient on Augmentin now P/ Continue Augmentin Continue WoundVac possible discharge tomorrow Recommend ROM left hand and forearm at home Followup with Surgery Clinic in 2 weeks
[2017-02-05] MEDS: POTASSIUM CHLORIDE 20 MEQ/15 ML UDCUP PO SCH (21:46)
[2017-02-05] MEDS: DULOXETINE HCL 30 MG CAPSULE.DR PO SCH (21:54)
[2017-02-05] MEDS: TOPIRAMATE 100 MG TABLET PO SCH (21:54)
[2017-02-05] MEDS: CLONIDINE HCL 0.1 MG TABLET PO SCH (21:54)
[2017-02-06] MEDS: OXYCODONE-ACETAMINOPHEN 5-325 MG TABLET PO PRN ×2 (04:18→11:01)
[2017-02-06] MEDS: OXYCODONE HCL IR 5 MG TABLET PO PRN ×2 (04:19→11:03)
[2017-02-06] MEDS: AMOXICILLIN TR/POT CLAVULANATE 500-125 MG TAB PO SCH ×2 (06:21→15:07)
[2017-02-06] MEDS: LANSOPRAZOLE 30 MG TAB.RAP.DR PO SCH (06:21)
[2017-02-06] MEDS: GABAPENTIN 300 MG CAPSULE PO SCH ×2 (06:22→15:07)
[2017-02-06] MEDS: AMLODIPINE BESYLATE 10 MG TABLET PO SCH (09:31)
[2017-02-06] MEDS: TOPIRAMATE 25 MG TABLET PO SCH (09:31)
[2017-02-06] MEDS: MELOXICAM 7.5 MG TABLET PO SCH (09:32)
[2017-02-06] MEDS: ATORVASTATIN CALCIUM 10 MG TABLET PO SCH (09:32)
[2017-02-06] MEDS: ENOXAPARIN SODIUM INJ 40 MG/0.4 ML DISP.SYRIN SUBCUT SCH (09:32)
[2017-02-06 15:54] VITALS: BP 110/55
== END 2017-02-06 17:15 | disposition home health service (06) | DRG 853 ==
LOC: ER 08:40 → UNDOADMIN 11:32 → EH 11:32 → ICU 12:32 → 5 01-25 19:10
PROVIDERS: ADMIT Internal Medicine; ATTEND Internal Medicine
PROC: 02HV33Z Insertion of Infusion Device into Superior Vena Cava, Percutaneous Approach (ICD-10-PCS; 2017-01-24)
PROC: 0J9H0ZZ Drainage of Left Lower Arm Subcutaneous Tissue and Fascia, Open Approach (ICD-10-PCS; principal; 2017-01-25 17:45)
DX: A41.9 Sepsis, unspecified organism (principal); R65.21 Severe sepsis with septic shock; N17.9 Acute kidney failure, unspecified; L03.114 Cellulitis of left upper limb; L02.414 Cutaneous abscess of left upper limb; B95.0 Streptococcus, group A, as the cause of diseases classified elsewhere; I10 Essential (primary) hypertension; G89.4 Chronic pain syndrome; F32.9 Major depressive disorder, single episode, unspecified; Z79.899 Other long term (current) drug therapy; Z87.891 Personal history of nicotine dependence
CPT/HCPCS: 00400; 36415; 70450; 71010; 71275; 74174; 80048; 80053; 80202; 81001; 82140; 82150; 82550; 82553; 82565; 82803; 83036; 83605; 83690; 83735; 84100; 84439; 84443; 84484; 85025; 85610; 85730; 87040; 87070; 87075; 87077; 87086; 87205; 93005; 93010; 96365; 96367; 96375; 99291; 99292; A6266; C1751; J0131; J0696; J1170; J1644; J1650; J1720; J2250; J2405; J2543; J2704; J3010; J3370; J3480; J3490; J7030; J7060; P9047

== ENCOUNTER → 2019-01-11 | Outpatient (CLI) | payer BC ==
--- NOTE | 2019-01-11 10:59 | RADIOLOGY REPORT (SQ) ---
EXAM DESCRIPTION: KNEE RIGHT 2 VIEWS COMPLETED DATE/TIME: 01/11/2019 10:47 am REASON FOR STUDY: PAIN IN RT KNEE; CHEST PAIN R07.9 CHEST PAIN, UNSPECIFIED M25.561 PAIN IN RIGHT KNEE COMPARISON: Teen 2016 NUMBER OF VIEWS: Two views. TECHNIQUE: AP and lateral radiographic images acquired of the right knee. LIMITATIONS: None. FINDINGS: MINERALIZATION: Normal. BONES: No acute fracture or dislocation. No worrisome bone lesions. No significant osteophytes. JOINT: No effusion. No chondrocalcinosis. There is joint space narrowing in all compartments. OTHER: No other significant finding. IMPRESSION: Joint space narrowing in all compartments consistent with osteoarthritis. TECHNICAL DOCUMENTATION: JOB ID: [id number] [employer]- All Rights Reserved Reading location - IP/workstation name: [email or web address]
--- NOTE | 2019-01-11 11:10 | RADIOLOGY REPORT (SQ) ---
EXAM DESCRIPTION: RIBS LEFT W/PA CHEST COMPLETED DATE/TIME: 01/11/2019 10:47 am REASON FOR STUDY: PAIN IN RT KNEE; CHEST PAIN R07.9 CHEST PAIN, UNSPECIFIED M25.561 PAIN IN RIGHT KNEE COMPARISON: Chest x-ray dated 01/27/2017 TECHNIQUE: Frontal view of the chest and additional views of the left ribs acquired. NUMBER OF VIEWS: Five view. LIMITATIONS: None. FINDINGS: FRONTAL CXR: No pneumothorax. No pleural effusion. No atelectasis or infiltrates. RIBS: No displaced rib fractures. No lytic or blastic bony lesions. OTHER: No other significant finding. IMPRESSION: NO PNEUMOTHORAX. NO DISPLACED RIB FRACTURES. COMMENT: SITE OF TRAUMA/COMPLAINT MARKED/STAMP COMPLETED: YES. TECHNICAL DOCUMENTATION: JOB ID: [id number] [employer]- All Rights Reserved Reading location - IP/workstation name: [email or web address]
== END ==
LOC: OD 10:25
PROVIDERS: ATTEND Internal Medicine
DX: R07.9 Chest pain, unspecified (principal); M17.11 Unilateral primary osteoarthritis, right knee; M25.561 Pain in right knee

== ENCOUNTER 2020-02-25 08:36 | Day surgery (SDC) | payer MEDICARE, OTHER ==
[~2020-02-25 08:36] MED LIST: KETOROLAC TROMETHAMINE 0.45% 4 DROP/0.4 ML DROPERETTE OD PRN
[2020-02-25] MEDS: BESIFLOXACIN HCL 0.6% OPH SUSP 5 ML BOTTLE OD PRN ×4 (09:36→11:59)
[2020-02-25] MEDS: CYCLOPENTOLATE 0.2%/PHENYLEPHRINE 1% OPH SOLN 2 ML OD PRN ×3 (09:36→09:56)
[2020-02-25] MEDS: TROPICAMIDE 1% OPH SOLN 15 ML OD PRN ×3 (09:36→09:56)
[2020-02-25] MEDS: TETRACAINE HCL 0.5% OPH SOLN 4 ML OD PRN ×4 (09:37→11:32)
[2020-02-25] MEDS ORDERED: FENTANYL CITRATE INJ/PF 100 MCG/2 ML AMPUL ONE (10:03)
[2020-02-25] MEDS ORDERED: MIDAZOLAM 2 MG/2 ML INJ ONE (10:03)
[2020-02-25] MEDS: EPINEPHRINE INJ/PF 1 MG/1 ML AMPULE ONE ×2 (11:44)
[2020-02-25] MEDS: CHONDR SU A NA/HYALUR INTRAOC KIT (SURGICARE) ONE ×2 (11:44)
[2020-02-25] MEDS: LIDOCAINE 1%/PHENYLEPHRINE 1.5% 0.8 ML SYRINGE ONE ×2 (11:44)
[2020-02-25] MEDS: DORZOLAMIDE HCL 2%/TIMOLOL MALEAT 0.5% OPH SOLN 10 ML OD PRN ×2 (11:59)
[2020-02-26] MEDS ORDERED: CYCLOPENTOLATE 0.2%/PHENYLEPHRINE 1% OPH SOLN 2 ML OD PRN (05:00)
[2020-02-26] MEDS ORDERED: PREDNISOLONE ACETATE 1% OPH SUSP 5 ML OD PRN (05:00)
[2020-02-26] MEDS ORDERED: DORZOLAMIDE HCL 2%/TIMOLOL MALEAT 0.5% OPH SOLN 10 ML OD PRN (05:00)
[2020-02-26] MEDS ORDERED: KETOROLAC TROMETHAMINE 0.45% 4 DROP/0.4 ML DROPERETTE OD PRN (05:00)
[2020-02-26] MEDS ORDERED: TROPICAMIDE 1% OPH SOLN 15 ML OD PRN (05:00)
[2020-02-26] MEDS ORDERED: BESIFLOXACIN HCL 0.6% OPH SUSP 5 ML BOTTLE OD PRN (05:00)
--- NOTE | 2020-02-26 20:35 | Operative Report ---
Operative Report-[facility] Operative Report: PREOPERATIVE DIAGNOSIS: Nuclear, cortical and posterior subcapsular cataract, right eye POSTOPERATIVE DIAGNOSIS: Nuclear, cortical and posterior subcapsular cataracts, right eye PROCEDURE: Phacoemulsification and posterior chamber intraocular lens implant, right eye PROCEDURE DATE: [February 25, 2020] SURGEON: Joey Sanchez MD Next PLANE TABLEMAN: [Annalise] ANESTHESIA: Topical with IV sedation next COMPLICATIONS: None TISSUE TO PATHOLOGY: None ESTIMATED BLOOD LOSS: None INDICATION FOR SURGERY: [Ms. Haynes is 65 year old female] Who presents to our clinic complaining of difficulty seeing, to read and drive due to blurry vision in both eyes. On examination, she was found to have best corrected visual acuity of [20/50] in the right eye. Ophthalmoscopy revealed a [+2] nuclear, [+2] corneal degeneration, [trace] posterior subcapsular cataract in the right eye with normal appearing cornea, vitreous, retina and optic nerve. I discussed the findings of the exam with the patient. We discussed the risks, benefits and alternatives of cataract extraction and intraocular lens implant in the right eye as a means of improving her vision. Risks that were discussed with the patient include infection, bleeding, retinal detachment and possible need for additional surgery. The patient understands that she may need to wear glasses after surgery. After discussion, the patient indicated her interest in having this procedure performed by signing an informed witness consent form. REPORT OF PROCEDURE: On the day of surgery, the patient was given a topical application to the right eye to consist of drop of Tetracaine 0.5%, tropicamide 1%, Cyclomidril, Besivance 0.6% and Acular 0.45%. The patient was then taken to the operating room in a supine position in a standard eye bed. Intravenous sedation was administered and she was prepped and draped in the standard fashion. A timeout was performed to confirm the surgical site. Attention was directed to the right eye where a paracentesis was created at the 11:30 position at the corneal limbus with a 15 degree blade. The anterior chamber was filled with 0.3 mL of 1% methylparaben free lidocaine and after 30 seconds the anterior chamber was filled with viscoelastic material. A 3 plane corneal incision was then made at the 9 o'clock position at the cornea limbus with a keratome. A continuous curvilinear capsulorrhexis was then made in the anterior capsule of the lens with a cystotome. The lens was hydrodissected using balanced saline solution. The lens nucleus was then removed by phacoemulsification using the stop and chop technique. CDE [8.36]. The remaining cortical material was then removed from the posterior capsular bag using irrigation and aspiration. The posterior capsule bag was filled with viscoelastic material and a lens implant was inserted into the posterior capsule bag. I have chosen for this case is a one piece acrylic lens from [employer] model [[id number]], serial number [[id number]], lens power [23.5/3.75 at 92 degrees]. The lens was removed from its package, inspected and found to be free of defects it was loaded into a [place] D multisensor intelligence officer. The multisensor intelligence officer was passed through the temporal wound and the lens was advanced into the posterior capsular bag. The lens implant was centered in the posterior capsular bag with the Keddie spatula and the viscoelastic material was removed from the eye using irrigation and aspiration. The wounds were closed by stromal hydration and they were tested with the Weck-Nella sponges and found to have no leaks. Intraocular pressure was assessed by manual palpitation found to be with in the physiologic range. The drape and speculum were removed. Drops of Durezol, Combigan and gatifloxacin were instilled in the right eye. The patient was then taken to the recovery room in good condition. The patient tolerated the procedure very well. The patient was given a prescription for gatifloxacin, Durezol and Ilervo to use every 2 hours while awake today. She will return my clinic tomorrow for follow-up evaluation.
== END 2020-02-25 12:45 | disposition home or self-care (01) ==
LOC: SC 08:36
PROVIDERS: ATTEND Ophthalmology
DX: H25.811 Combined forms of age-related cataract, right eye (principal); Z98.890 Other specified postprocedural states; Z79.82 Long term (current) use of aspirin; Z79.899 Other long term (current) drug therapy; E78.00 Pure hypercholesterolemia, unspecified; I10 Essential (primary) hypertension; Z87.891 Personal history of nicotine dependence
CPT/HCPCS: 00142; 66984; V2787; J2250; J3490 ×3; A9270; J0171; J3010; 142